=== PATIENT | female | born 1975 | race Caucasian/White ===

== ENCOUNTER → 2017-10-06 | Outpatient (CLI) | payer BC ==
--- NOTE | 2017-10-06 17:54 | US ---
EXAMINATION TYPE: US pelvic complete DATE OF EXAM: 10/06/2017 COMPARISON: NONE CLINICAL HISTORY: 41-year-old female R59.0 LYMPHADENOPATHY ATTN RT GROIN. With prior hysterectomy and left oophorectomy, h/o ovarian cysts, palpable right groin node . TECHNIQUE: Transabdominal scanning Date of LMP: 2011 FINDINGS: Uterus: Surgically absent Right Ovary: 4.1 x 4.9 x 3.9 cm with a 3.7 cm simple cyst within. Left Ovary: Surgically absent No evident adnexal abnormality or cul-de-sac free fluid. Palpable, tender area in right groin for 1 year, images of area of concern showed multiple normal a ppearing lymph nodes. Largest = 1.1cm. IMPRESSION: 1. Status post hysterectomy and left oophorectomy. 2. A 3.7 cm simple cyst in the right ovary. Findings probably represent a dominant follicle or functi onal cyst. If indicated, follow-up in 6-8 weeks can assess for resolution. 3. Tender, palpable area in the right groin shows a few prominent but nonenlarged inguinal lymph node s measuring up to 1.1 cm long axis.
== END | disposition home or self-care (01) ==
LOC: RADUSWWP 13:57
PROVIDERS: ATTEND Family Medicine
DX: N83.201 Unspecified ovarian cyst, right side (principal); M79.89 Other specified soft tissue disorders; Z90.710 Acquired absence of both cervix and uterus; Z90.721 Acquired absence of ovaries, unilateral
CPT/HCPCS: 76856

== ENCOUNTER 2018-02-24 03:39 | Emergency (ER) | payer BC, OTHER ==
[2018-02-24 03:44] VITALS: BP 130/80; PULSE 81; RESP 20; TEMP 98
--- NOTE | 2018-02-24 03:59 | ED ---
General Adult HPI - General Chief complaint: Extremity Injury, Upper Stated complaint: Hand injury-[facility] Time Seen by Provider: 02/24/18 03:40 Source: patient, family, RN notes reviewed Mode of arrival: ambulatory Limitations: no limitations - History of Present Illness Initial comments: This is a 42-year-old female comes into the right hand pain. Patient states at work she caught her hand between 2 pieces of metal and now the posterior aspect of her right hand hurts. Patient denies any wrist pain patient denies any finger pain. Patient states she thinks she just broke a blood vessel and that is irritating her hand. Patient denies any other injury at this time. Patient denies any loss of movement or sensation. - Related Data Home Medications Medication Instructions Recorded Confirmed No Known Home Medications [No 04/05/14 02/24/18 Known Home Medications] Allergies Allergy/AdvReac Type Severity Reaction Status Date / Time No Known Allergies Allergy Verified 02/24/18 03:44 Review of Systems ROS Statement: Those systems with pertinent positive or pertinent negative responses have been documented in the HPI. ROS Other: All systems not noted in ROS Statement are negative. Past Medical History Past Medical History: Asthma, Blood Disorder, GERD/Reflux, Thyroid Disorder Additional Past Medical History / Comment(s): THYROID NODULES.ANEMIA (resolved after periods ceased due to partial hysterectomy).DEAF RIGHT EAR.STRESS INCONTINENCE.NUMBNESS/TINGLING BOTH WRISTS. History of Any Multi-Drug Resistant Organisms: None Reported Past Surgical History: Hysterectomy, Tonsillectomy, Tubal Ligation Additional Past Surgical History / Comment(s): RIGHT EARDRUM SURGERY. Partial hysterectomy/left oopherectomy. Past Anesthesia/Blood Transfusion Reactions: No Reported Reaction Additional Past Anesthesia/Blood Transfusion Reaction / Comment(s): No hx of blood transfusions Past Psychological History: Depression Smoking Status: Current every day smoker Past Alcohol Use History: None Reported Past Drug Use History: None Reported General Exam - General Exam Comments Initial Comments: GENERAL Patient is well-developed and well-nourished. Patient is in mild distress. EYES Patient's pupils are equal and round. Extraocular motion is intact SKIN Unremarkable NEURO The patient is alert and oriented 3 PYSCH Patient has normal interpersonal interactions. MUSCULOSKELETAL Patient's right hand has some ecchymosis and tenderness to the posterior aspect there is no finger pain there is no finger swelling there is no wrist pain or lack of range of motion Limitations: no limitations Course Vital Signs 02/24/18 03:41 Temperature 98 F Pulse Rate 81 Respiratory 20 Rate Blood Pressure 130/80 O2 Sat by Pulse 98 Oximetry Medical Decision Making - Medical Decision Making X-ray of the hand shows no acute injury. Disposition Clinical Impression: Contusion, hand Disposition: HOME SELF-CARE Condition: Good Instructions: Contusion in Adults (ED), Hematoma (ED) Is patient prescribed a controlled substance at discharge?: No Referrals: Theresa Maxwell MD [Primary Care Provider] - 1-2 days Time of Disposition: 04:13
[2018-02-24] MEDS ORDERED: IBUPROFEN 600 MG TAB PO STA (04:13)
--- NOTE | 2018-02-24 04:19 | XR ---
EXAM: XR Right Hand Complete, 3 or More Views CLINICAL HISTORY: ITS.REASON XR Reason: Pain TECHNIQUE: Frontal, lateral and oblique views of the right hand. COMPARISON: No relevant prior studies available. FINDINGS: Bones/joints: Unremarkable. No acute fracture. No dislocation. Soft tissues: Unremarkable. No radiopaque foreign body. IMPRESSION: Normal right hand x-rays.
== END 2018-02-24 04:24 | disposition home or self-care (01) ==
LOC: EC 03:39
DX: S60.221A Contusion of right hand, initial encounter (principal); F17.200 Nicotine dependence, unspecified, uncomplicated; Z53.29 Procedure and treatment not carried out because of patient's decision for other reasons; W23.0XXA Caught, crushed, jammed, or pinched between moving objects, initial encounter; Y99.0 Civilian activity done for income or pay
CPT/HCPCS: 99283

== ENCOUNTER → 2018-03-04 | Outpatient (CLI) | payer OTHER ==
--- NOTE | 2018-03-04 11:35 | XR ---
EXAMINATION TYPE: XR hand complete RT DATE OF EXAM: 03/04/2018 CLINICAL HISTORY: Injury last week to the dorsum of the hand with bruising and pain. TECHNIQUE: Frontal, lateral and oblique images of the right hand are obtained. COMPARISON: None. FINDINGS: There is no acute fracture/dislocation evident in the right hand. The joint spaces in the right hand appear within normal limits. The overlying soft tissue appears unremarkable. IMPRESSION: There is no acute fracture or dislocation in the right hand.
== END | disposition home or self-care (01) ==
LOC: RADXRMAIN 11:17
PROVIDERS: ATTEND Emergency Medicine
DX: S67.21XD Crushing injury of right hand, subsequent encounter (principal)

== ENCOUNTER → 2018-03-17 | Outpatient (CLI) | payer BC ==
[2018-03-17 17:08] LABS: Basophils # (A) 0.1 k/uL (0-0.2); Basophils % (A) 1 %; Eosinophils # (A) 0.3 k/uL (0-0.7); Eosinophils % (A) 5 %; HCT 43.8 % (34.0-46.0); HGB 14.4 gm/dL (11.4-16.0); Lymphocytes # (A) 1.1 k/uL (1.0-4.8); Lymphocytes % (A) 19 %; MCHC 32.8 g/dL (31.0-37.0); MCV 88.5 fL (80.0-100.0); Mean Platelet Volume 8.3; Monocytes # (A) 0.4 k/uL (0-1.0); Monocytes % (A) 7 %; Neutrophils # (A) 3.8 k/uL (1.3-7.7); Neutrophils % (A) 66 %; Platelet Count 185 k/uL (150-450); RBC 4.95 m/uL (3.80-5.40); WBC 5.7 k/uL (3.8-10.6)
== END | disposition home or self-care (01) ==
LOC: LABPAT 16:23
PROVIDERS: ATTEND Obstetrics & Gynecology
DX: Z01.812 Encounter for preprocedural laboratory examination (principal)
CPT/HCPCS: 36415; 85025

== ENCOUNTER → 2018-03-24 | Outpatient (CLI) | payer BC | END | disposition home or self-care (01) | LOC: LABPAT 15:48 | PROVIDERS: ATTEND Obstetrics & Gynecology | DX: Z01.812 Encounter for preprocedural laboratory examination (principal) | CPT/HCPCS: 36415; 86850; 86900; 86901 ==

== ENCOUNTER 2018-03-26 05:58 | Day surgery (SDC) | payer BC ==
[2018-03-23 15:53] VITALS: BMI 25.4
[~2018-03-26 05:58] MED LIST: DEXAMETHASONE SOD PHOSPHATE 10 MG/ML 1 ML VIAL IV ONE; LACTATED RINGERS 1,000 ML IV SCH; LIDOCAINE 1% 20 ML VIAL (10MG/ML) FOR IV START INTRADERMA PRN; MORPHINE SULFATE 4 MG/ML SYRINGE IV PRN; ONDANSETRON 4 MG/2 ML VIAL IVP ONE
--- NOTE | 2018-03-26 06:24 | P.HPOB ---
History of Present Illness H&P Date: 03/26/18 Chief Complaint: Pelvic pain 42 year old presents for diagnostic laparoscopy with da dennis and possible cauterization of endometriosis, possible aspiration of ovarian cyst and possible right oopherectomy all for pelvic pain. She has a history of adenomyosis and endometriosis and has already undergone a hysterectomy. Review of Systems All systems: negative Constitutional: Denies chills, Denies fever Eyes: denies blurred vision, denies pain Ears, nose, mouth and throat: Denies headache, Denies sore throat Cardiovascular: Denies chest pain, Denies shortness of breath Respiratory: Denies cough Gastrointestinal: Denies abdominal pain, Denies diarrhea, Denies nausea, Denies vomiting Genitourinary: Denies dysuria, Denies hematuria Musculoskeletal: Denies myalgias Integumentary: Denies pruritus, Denies rash Neurological: Denies numbness, Denies weakness Psychiatric: Denies anxiety, Denies depression Endocrine: Denies fatigue, Denies weight change Past Medical History Past Medical History: Asthma, Blood Disorder, GERD/Reflux, Thyroid Disorder Additional Past Medical History / Comment(s): THYROID NODULES.ANEMIA (resolved after periods ceased due to hysterectomy).DEAF RIGHT EAR.STRESS INCONTINENCE.NUMBNESS/TINGLING BOTH WRISTS. History of Any Multi-Drug Resistant Organisms: None Reported Past Surgical History: Hysterectomy, Tonsillectomy, Tubal Ligation Additional Past Surgical History / Comment(s): RIGHT EARDRUM SURGERY. Partial hysterectomy/left oopherectomy. Past Anesthesia/Blood Transfusion Reactions: No Reported Reaction Additional Past Anesthesia/Blood Transfusion Reaction / Comment(s): No hx of blood transfusions Past Psychological History: Depression Past Alcohol Use History: None Reported Additional Past Alcohol Use History / Comment(s): smokes 1/4 pack/day x 20 years - Past Family History Mother Additional Family Medical History / Comment(s): Aneursym. Medications and Allergies Home Medications Medication Instructions Recorded Confirmed Type No Known Home Medications [No 04/05/14 03/23/18 History Known Home Medications] Allergies Allergy/AdvReac Type Severity Reaction Status Date / Time No Known Allergies Allergy Verified 03/23/18 15:42 Exam Osteopathic Statement: *. No significant issues noted on an osteopathic structural exam other than those noted in the History and Physical/Consult. HEart: RRR Lungs: CTAB ABdomen: soft, nontender extremeties: neg dave's Assessment and Plan (1) Pelvic pain Current Visit: Yes Status: Acute Code(s): R10.2 - PELVIC AND PERINEAL PAIN SNOMED Code(s): 08594913 Plan: 1. diagnostic laparoscopy with da vinici, possible cauterization of endometriosis, possible aspiration of right ovarian cyst, possible oopherectomy
[2018-03-26] MEDS ORDERED: SCOPOLAMINE 1.5MG/72HR PATCH TRANSDERM ONE (06:53)
[2018-03-26] MEDS ORDERED: BUPIVACAINE (PF) 0.25% 30 ML VIAL SQ ONE ×2 (07:19→08:59)
[2018-03-26] MEDS ORDERED: GLYCOPYRROLATE 0.2 MG/ML 2 ML VIAL ONE (07:58)
[2018-03-26] MEDS ORDERED: fentaNYL (PF) 50 MCG/ML 2 ML AMP ONE (07:58)
[2018-03-26] MEDS ORDERED: NEOSTIGMINE 1 MG/ML 10 ML VIAL ONE (07:58)
[2018-03-26] MEDS ORDERED: ROCURONIUM BROMIDE 10 MG/ML 10 ML VIAL IV ONE (07:58)
[2018-03-26] MEDS ORDERED: MIDAZOLAM 2 MG/2 ML VIAL ONE (07:58)
[2018-03-26] MEDS ORDERED: LIDOCAINE 1% INJ 10MG/ML (20 ML MDV) ONE (07:58)
[2018-03-26] MEDS ORDERED: PROPOFOL 10 MG/ML 20 ML VIAL IV ONE (07:58)
--- NOTE | 2018-03-26 09:04 | P.OP ---
Date of Procedure: 03/26/18 Preoperative Diagnosis: 1. pelvic pain Postoperative Diagnosis: 1. endometriosis 2. hepatomegaly 3. filmy pelvic adhesions Procedure(s) Performed: 1. diagnostic laparoscopy, cauterization of endometriosis and lysis of adhesions with da scotty Anesthesia: CARMELITA Surgeon: Vani Martinez Estimated Blood Loss (ml): 2 IV fluids (ml): 350 Urine output (ml): 75 Pathology: none sent Condition: stable Disposition: PACU Operative Findings: hepatomegaly. no ovarian cysts and both ovaries clearly visualized. filmy pelvic adhesions to bowel, normal appendix, hepatomegaly. Description of Procedure: Patient taken the operating room where general anesthesia was obtained without difficulty. She is prepped and draped in normal sterile fashion dorsal lithotomy position, legs placed in the Fred stirrups. A 5 mm supraumbilical incision was made the scalpel and a 5 mm optical trocar was placed under direct visualization. 10 cm to the right of this and 2 cm down a 5 mm incision was made and 8 mm da Scotty port was placed under direct visualization. Same measurements on the opposite side of the patient's abdomen, the 5 mm incision was made and 8 mm da Scotty port was placed under direct visualization. The 5 mm optical trocar was then replaced with the 8 mm da Scotty camera port. The robot was docked. The camera was introduced and then the monopolar curved scissor and [place] bipolar placed under direct visualization. I broke scrub and went to the physician console. On survey of the pelvis immediately observed was that the liver reaches all the way down to the right side of the pelvis. This is obviously evidence for hepatomegaly. Also visible is the appendix which appeared normal, there is some filmy adhesions of the cecum to the right pelvic sidewall. There are some filmy adhesions around the right ovary. There is no evidence of a right ovarian cyst. The left ovary is visualized and appears normal. There is some small area of endometriosis visualized in the posterior cul-de-sac and this area was cauterized with the monopolar curved scissors. The filmy adhesions are taken down with the monopolar curved scissors. All instruments were removed from the abdomen and the robot was undocked. The abdominal incisions were closed with 4-0 Vicryl in a subcuticular fashion. Patient tolerated the procedure well, sponge and instrument counts correct 2 and she was taken to recovery room in stable condition condition
[2018-03-26] MEDS: MEPERIDINE 50 MG/ML SYRINGE IVP ONE ×2 (09:18→09:31)
[2018-03-26 09:34] VITALS: TEMP 97.7
[2018-03-26] MEDS ORDERED: KETOROLAC 30 MG/ML 1 ML VIAL IVP ONE (09:36)
[2018-03-26] MEDS ORDERED: diphenhydrAMINE 50 MG/ML 1 ML VIAL IVP ONE (09:36)
[2018-03-26] MEDS ORDERED: IBUPROFEN 200 MG TAB PO ONE (10:39)
[2018-03-26 10:47] VITALS: BP 111/74; PULSE 75; RESP 18
== END 2018-03-26 11:11 | disposition home or self-care (01) ==
LOC: OR 05:58
PROVIDERS: ATTEND Obstetrics & Gynecology
DX: N80.0 Endometriosis of uterus (principal); N73.6 Female pelvic peritoneal adhesions (postinfective); R16.0 Hepatomegaly, not elsewhere classified; F17.210 Nicotine dependence, cigarettes, uncomplicated; K21.9 Gastro-esophageal reflux disease without esophagitis; E04.2 Nontoxic multinodular goiter
CPT/HCPCS: 58662; J2250; J1200; J1100; J2710; J2175; J2405; J2001; J3010; J1885; J2704; 36415; 86850; 86900; 86901

== ENCOUNTER → 2018-04-09 | Outpatient (CLI) | payer BC ==
--- NOTE | 2018-04-09 17:26 | CT ---
EXAMINATION TYPE: CT abdomen pelvis w con DATE OF EXAM: 04/09/2018 COMPARISON: NONE INDICATION: Hepatomegaly, RUQ pain and attention R groin DLP: 488.90 mGycm, Automated exposure control for dose reduction was used. CONTRAST: 100 ml mL of Isovue 300. Study performed with Oral Contrast TECHNIQUE: Axial images were obtained from above the diaphragm to the pubic rami in the axial plane a t 5 mm thick sections. Reconstructed images are reviewed on the computer in the coronal plane. FINDINGS: Limited CT sections are obtained the lung bases. The lung bases are clear. CT ABDOMEN: Liver: Normal Spleen: Normal Pancreas: Normal Adrenal glands: The adrenal glands are normal. Gallbladder: Normal Kidneys: No masses are evident. No hydronephrosis is present. No cysts are present. Delayed images were obtained through the kidneys, which remain unremarkable. Aorta: Normal Inferior vena cava: Normal. CT PELVIS: Loops of bowel within the abdomen and pelvis are normal. There are loops of bowel which are incom pletely distended or lack oral contrast limiting their evaluation. Appendix: Not clearly identified. No suspicious tubular structure or inflammatory changes evident. Urinary bladder: Normal. Genitourinary structures: Uterus and ovaries are not identified. Osseous structures: No suspicious lytic or sclerotic lesions. Lymph nodes: Multiple bilateral inguinal lymph nodes are present. Largest on the left inguinal region is a transverse dimension of 1.0 cm. No suspicious pelvic or abdominal adenopathy is evident. IMPRESSIONS: 1. Scattered small bilateral inguinal lymph nodes. 2. No suspicious abnormality to account for right upper quadrant pain
== END | disposition home or self-care (01) ==
LOC: RADCTMAIN 07:26
PROVIDERS: ATTEND Family Medicine
DX: R16.0 Hepatomegaly, not elsewhere classified (principal); R59.0 Localized enlarged lymph nodes; R10.10 Upper abdominal pain, unspecified
CPT/HCPCS: 74177; Q9967

== ENCOUNTER → 2018-05-21 | Outpatient (CLI) | payer BC ==
--- NOTE | 2018-05-21 09:44 | US ---
EXAMINATION TYPE: US abdomen complete DATE OF EXAM: 05/21/2018 COMPARISON: CT abdomen and pelvis April 09, 2018 CLINICAL HISTORY: R16.0 Hepatomegaly. EXAM MEASUREMENTS: Liver Length: 15.6 cm Gallbladder Wall: 0.2 cm CBD: 0.6 cm Spleen: 11.6 cm Right Kidney: 9.8 x 4.1 x 5.1 cm Left Kidney: 9.7 x 5.9 x 5.7 cm Pancreas: visualized portions wnl Liver: wnl Gallbladder: No stones seen Evidence for sonographic Johnson's sign: No CBD: wnl Spleen: wnl Right Kidney: No hydronephrosis or masses seen Left Kidney: No hydronephrosis or masses seen Upper IVC: wnl Abd Aorta: wnl The visualized liver is homogenous. The intrahepatic portion of the IVC and visualized abdominal aor ta are within normal limits. There is no evidence of cholelithiasis. Common bile duct is unremarkab le. The visualized portions of the pancreas are homogenous. The spleen is unremarkable. Kidneys ar e symmetric and free of hydronephrosis. No renal lesions are seen. IMPRESSION: Liver felt upper limits normal in size without worrisome mass or intrahepatic ductal dila tation. No suspicious acute or new findings identified.
== END | disposition home or self-care (01) ==
LOC: RADUSWWP 08:47
DX: R16.0 Hepatomegaly, not elsewhere classified (principal)
CPT/HCPCS: 76700

== ENCOUNTER → 2018-05-29 | Outpatient (CLI) | payer BC ==
[2018-05-29 17:17] LABS: Albumin 4.6 g/dL (3.5-5.0); Bilirubin, Delta 0.2 mg/dL (0.0-0.2); Bilirubin,Unconjugated 0.6 mg/dL (0.0-1.1); Total Bilirubin 0.8 mg/dL (0.2-1.3); Total Protein 6.9 g/dL (6.3-8.2)
== END ==
LOC: LABWHC1 16:28
DX: R16.0 Hepatomegaly, not elsewhere classified (principal)
CPT/HCPCS: 36415; 80076

== ENCOUNTER → 2018-08-31 | Outpatient (CLI) | payer BC ==
--- NOTE | 2018-08-31 18:24 | US ---
EXAMINATION TYPE: US abdomen complete DATE OF EXAM: 08/31/2018 COMPARISON: NONE CLINICAL HISTORY: RUQ Tenderness R10.11,Diarrhea R19.7. Pain and nausea. EXAM MEASUREMENTS: Liver Length: 16.1 cm Gallbladder Wall: 0.2 cm CBD: 0.5 cm Spleen: 10.8 cm Right Kidney: 10.0 x 4.0 x 4.9 cm Left Kidney: 9.2 x 5.3 x 4.5 cm Pancreas: wnl Liver: wnl Gallbladder: wnl Evidence for sonographic Johnson's sign: No CBD: wnl Spleen: wnl Right Kidney: wnl Left Kidney: wnl Upper IVC: wnl Abd Aorta: Distal area obscured by bowel gas. No ascites. Normal gallbladder. IMPRESSION: Negative complete abdominal sonogram.
== END | disposition home or self-care (01) ==
LOC: RADUSMAIN 16:59
PROVIDERS: ATTEND Family Medicine
DX: R10.11 Right upper quadrant pain (principal); R19.7 Diarrhea, unspecified; N28.9 Disorder of kidney and ureter, unspecified
CPT/HCPCS: 76700

== ENCOUNTER → 2018-10-27 | Outpatient (CLI) | payer BC ==
--- NOTE | 2018-10-28 08:24 | NM ---
EXAMINATION TYPE: NM hepatobiliary w EF DATE OF EXAM: 10/27/2018 COMPARISON: Abdominal ultrasound dated 08/31/2018 HISTORY: Right upper quadrant pain TECHNIQUE: After the intravenous administration of 5.36 mCi Tc 99m Mebrofenin hepatobiliary scintigra phy is performed. Immediate images post injection. FINDINGS: There is satisfactory initial accumulation of tracer by the liver. The gallbladder is visualized wit hin 24 minutes. The small bowel activity is noted within 16 minutes. At one hour 8 ounces of oral e nsure plus is given to mimic CCK and gallbladder ejection fraction is calculated at 90 %, abnormally elevated. Therefore there is no scintigraphic evidence of cystic or common bile duct obstruction to suggest acute cholecystitis or gallbladder dyskinesia. IMPRESSION: 1. No scintigraphic evidence of acute or chronic cholecystitis. 2. Biliary dyskinesia (hyperkinesia with ejection fraction of 90%).
== END ==
LOC: RADNMMAIN 14:55
PROVIDERS: ATTEND Surgery
DX: K82.8 Other specified diseases of gallbladder (principal)
CPT/HCPCS: 78226; A9537

== ENCOUNTER → 2018-12-16 | Day surgery (SDC) | payer BC ==
[2018-12-11 15:18] VITALS: BMI 25.0
[~2018-12-16] MED LIST changes: +BUPIVACAIN-EPI 0.25%-1:200,000 30 ML VIAL SQ ONE; +GLYCOPYRROLATE 0.2 MG/ML 2 ML VIAL ONE; +HEPARIN SODIUM,PORCINE 5,000 UNIT/ML 1 ML VIAL SQ ONE; +HYDROcodone/APAP 5-325MG 1 EACH TAB PO ONE; +HYDROcodone/APAP 5-325MG 1 EACH TAB PO PRN; +KETOROLAC 30 MG/ML 1 ML VIAL IVP ONE; +LACTATED RINGERS 1,000 ML IV ONE; +LIDOCAINE 1% INJ 10MG/ML (20 ML MDV) ONE; -MORPHINE SULFATE 4 MG/ML SYRINGE IV PRN; +NALOXONE 0.4 MG/ML 1 ML VIAL IV PRN; +NEOSTIGMINE 1 MG/ML 10 ML VIAL ONE; +PROPOFOL 10 MG/ML 20 ML VIAL IV ONE; +ROCURONIUM BROMIDE 10 MG/ML 10 ML VIAL IV ONE; +SCOPOLAMINE 1.5MG/72HR PATCH TRANSDERM ONE; +ceFAZolin IN SWFI 2 GM/20 ML SYRINGE IVP ONE; +fentaNYL (PF) 50 MCG/ML 2 ML AMP ONE
--- NOTE | 2018-12-16 07:58 | P.GSHP ---
History of Present Illness H&P Date: 12/16/18 Chief Complaint: Biliary dyskinesia Patient seen in the office in October. Patient has had complaints of intermittent right upper quadrant pain. Some nausea. Ultrasound shows no gallstones. Recent laparoscopy revealed some hepatomegaly. Patient had some transient liver enzyme elevations. She was seen by GI for this. A HIDA scan was performed which showed an elevated ejection fraction of 90%. Past Medical History Past Medical History: Asthma, Blood Disorder, GERD/Reflux, Hearing Disorder / Deafness Additional Past Medical History / Comment(s): ANEMIA (resolved after periods ceased due to hysterectomy). DEAF RIGHT EAR. STRESS INCONTINENCE. NUMBNESS/ TINGLING BOTH WRISTS. HX ENLARGED LIVER, ENZYMES NL NOW. C/O ONGOING ABD PAIN. History of Any Multi-Drug Resistant Organisms: None Reported Past Surgical History: Hysterectomy, Tonsillectomy, Tubal Ligation Additional Past Surgical History / Comment(s): RIGHT EARDRUM SURGERY. Partial hysterectomy. Past Anesthesia/Blood Transfusion Reactions: Motion Sickness Additional Past Anesthesia/Blood Transfusion Reaction / Comment(s): No hx of blood transfusions Smoking Status: Current every day smoker - Past Family History Mother Family Medical History: No Reported History Medications and Allergies Home Medications Medication Instructions Recorded Confirmed Type No Known Home Medications 12/11/18 12/11/18 History Allergies Allergy/AdvReac Type Severity Reaction Status Date / Time No Known Allergies Allergy Verified 12/11/18 14:57 Surgical - Exam Physical exam: General: Well-developed, well-nourished HEENT: Normocephalic, sclerae nonicteric Abdomen: Nontender, nondistended Extremities: No edema Neuro: Alert and oriented Assessment and Plan (1) Biliary dyskinesia Narrative/Plan: Options discussed with the patient in detail. Patient's intermittent attacks of pain with elevated liver enzyme elevation could be on the basis of microlithiasis not seen on recent ultrasound. Patient's elevated ejection fraction also could be contributing to her discomfort. The patient understands there is a real risk that the cholecystectomy will not alleviate her symptoms of right upper quadrant pain. Despite that she would like to proceed. Risks of bleeding, infection, bile leak, bile duct injury, retained common bile duct stone, trocar injury, conversion to an open procedure, hernia, anesthesia related complications were also reviewed. The patient understands and wishes to proceed. Current Visit: Yes Status: Acute Code(s): K82.8 - OTHER SPECIFIED DISEASES OF GALLBLADDER SNOMED Code(s): 225277671
[2018-12-16 08:02] VITALS: RESP 16
--- NOTE | 2018-12-16 09:32 | P.OP ---
Date of Procedure: 12/16/18 Procedure(s) Performed: PREOPERATIVE DIAGNOSIS: Biliary dyskinesia POSTOPERATIVE DIAGNOSIS: Same PROCEDURE: Laparoscopic cholecystectomy SURGEON: Sri EBL: Minimal see anesthesia record ANESTHESIA: Gen. COMPLICATIONS: None OPERATIVE PROCEDURE: The patient was brought and placed on the operating room table in the supine position. The patient was placed under general anesthesia at that time. The abdomen was prepped and draped in the usual sterile fashion. A small vertical infraumbilical incision was made. The fascia was grasped with the Butch forceps. The fascia was retracted anteriorly. The Veress needle was advanced into the peritoneal cavity. The saline drop test was normal. Insufflation took place up to 15 mmHg. A 5 mm optical trocar was advanced and the peritoneal cavity. 2 additional 5 mm trochars were placed in the right upper quadrant under direct visualization. A 12 mm trocar was advanced into the epigastric incision site. The patient had some adhesions to the supraumbilical view of scar site. These did not interfere with our surgical procedure however. The gallbladder was retracted superiorly and laterally. The peritoneum overlying the infundibulum was bluntly dissected. The patient's cystic duct was visualized. The junction between the cystic duct common and hepatic duct was identified. The cystic duct was then divided after placement of 3 12 mm clips on the patient's side and one on the specimen side. The cystic artery was identified and clipped as well. A small vessel was seen along the gallbladder fossa and clipped as well. The gallbladder was then removed from the liver bed using electrocautery. The gallbladder was then removed from the epigastric trocar site with an Endo Catch bag. The gallbladder fossa was irrigated with saline. There was no evidence of any bleeding or biliary drainage seen. The fascia at the 12 millimeter site was closed using a Franklin-Dave 0 Vicryl stitch. The trochars were then removed. The skin at all 4 sites was closed using a 4-0 Monocryl stitch. Skin glue was utilized on the incision sites. At the end of this procedure the sponge and needle counts were correct. DISPOSITION: Stable to the recovery room
[2018-12-16 09:38] VITALS: TEMP 97
[2018-12-16] MEDS: HYDROmorphone 0.5 MG/0.5 ML SYRINGE IVP PRN ×4 (09:46→10:27)
[2018-12-16 11:23] VITALS: BP 109/66; PULSE 75
== END ==
LOC: OR 07:17
PROVIDERS: ATTEND Surgery
DX: K81.1 Chronic cholecystitis (principal); K66.0 Peritoneal adhesions (postprocedural) (postinfection); J45.909 Unspecified asthma, uncomplicated; K21.9 Gastro-esophageal reflux disease without esophagitis; H91.91 Unspecified hearing loss, right ear; Z90.710 Acquired absence of both cervix and uterus; F17.200 Nicotine dependence, unspecified, uncomplicated
CPT/HCPCS: 47562; 88304; J1644; J1100; J2710; J2405; J2001; J3010; J1885; J2704; J1170; J0690

== ENCOUNTER 2019-10-27 01:34 | Observation (INO) | payer BC ==
[2019-10-27] MEDS ORDERED: MAG HYDROX/AL HYDROX/SIMETH 30 ML, HYOSCYAMINE ELIXIR 10 ML, LIDOCAINE VISCOUS 2% 10 ML PO STA ×3 (02:01)
[2019-10-27] MEDS ORDERED: SODIUM CHLORIDE 0.9% 1,000 ML IV STA (02:01)
[2019-10-27] MEDS ORDERED: FAMOTIDINE 20 MG/2 ML VIAL IV STA (02:01)
--- NOTE | 2019-10-27 02:07 | ED ---
General Adult HPI - General Source: patient, RN notes reviewed Mode of arrival: wheelchair Limitations: no limitations <Bobby Au - Last Filed: 10/27/19 02:04> <Quintin Bauman - Last Filed: 10/27/19 04:54> - General Chief complaint: Abdominal Pain Stated complaint: Abd Pain Time Seen by Provider: 10/27/19 01:50 - History of Present Illness Initial comments: 44-year-old female with a past medical history of asthma, GERD, anemia presents to the emergency department for a chief complaint of upper abdominal pain. States this started around 11:30 this evening or about 3 hours prior to arrival. Patient states it is in the epigastric area and radiates to the right upper abdomen. Patient states she did have her gallbladder removed in December of this year. Patient discussed the pain as a sharp twisting pain. Denies nausea vomiting diarrhea. Denies any chest pain or shortness of breath. Denies any associated back pain. Denies history of hypertension. Patient has no other complaints at this time including shortness of breath, chest pain, nausea or vomiting, headache, or visual changes. (Bobby Au) - Related Data Previous Rx's Medication Instructions Recorded Hydrocodone/Acetaminophen [[place] 1 tab PO Q6HR PRN 3 Days #10 tab 12/16/18 5-325] Allergies Allergy/AdvReac Type Severity Reaction Status Date / Time No Known Allergies Allergy Verified 12/16/18 07:56 Review of Systems ROS Other: All systems not noted in ROS Statement are negative. <Bobby Au - Last Filed: 10/27/19 02:04> ROS Other: All systems not noted in ROS Statement are negative. <Quintin Bauman - Last Filed: 10/27/19 04:54> ROS Statement: Those systems with pertinent positive or pertinent negative responses have been documented in the HPI. Past Medical History Past Medical History: Asthma, Blood Disorder, GERD/Reflux, Hearing Disorder / Deafness Additional Past Medical History / Comment(s): ANEMIA . DEAF RIGHT EAR. STRESS INCONTINENCE. NUMBNESS/TINGLING BOTH WRISTS. HX ENLARGED LIVER, ENZYMES NL NOW. C/O ONGOING ABD PAIN. History of Any Multi-Drug Resistant Organisms: None Reported Past Surgical History: Hysterectomy, Tonsillectomy, Tubal Ligation Additional Past Surgical History / Comment(s): RIGHT EARDRUM SURGERY. Partial hysterectomy. Past Anesthesia/Blood Transfusion Reactions: Motion Sickness Additional Past Anesthesia/Blood Transfusion Reaction / Comment(s): No hx of blood transfusions Past Psychological History: Depression Smoking Status: Current every day smoker - Past Family History Mother Family Medical History: No Reported History <Bobby Au P - Last Filed: 10/27/19 02:04> General Exam Limitations: no limitations General appearance: alert, in no apparent distress Head exam: Present: atraumatic, normocephalic, normal inspection Eye exam: Present: normal appearance, PERRL, EOMI. Absent: scleral icterus, conjunctival injection, periorbital swelling ENT exam: Present: normal exam, mucous membranes moist Neck exam: Present: normal inspection, full ROM. Absent: tenderness, meningismus, lymphadenopathy Respiratory exam: Present: normal lung sounds bilaterally. Absent: respiratory distress, wheezes, rales, rhonchi, stridor Cardiovascular Exam: Present: regular rate, normal rhythm, normal heart sounds. Absent: systolic murmur, diastolic murmur, rubs, gallop, clicks GI/Abdominal exam: Present: soft, tenderness (epigastric tenderness without significant guarding. no lower abdominal tenderness), normal bowel sounds. Absent: distended, guarding, rebound, rigid Neurological exam: Present: alert Psychiatric exam: Present: normal affect, normal mood <Bobby Au P - Last Filed: 10/27/19 02:04> Course Vital Signs 10/27/19 01:44 Temperature 97.9 F Pulse Rate 100 Respiratory 18 Rate Blood Pressure 123/82 O2 Sat by Pulse 98 Oximetry Medical Decision Making - Lab Data Result diagrams: 10/27/19 02:20 10/27/19 02:20 <Quintin Bauman N - Last Filed: 10/27/19 04:54> - Medical Decision Making 44-year-old female with epigastric and right upper quadrant abdominal pain. Previous surgical history of cholecystectomy. Patient has mild leukocytosis 11.7, hemoglobin 16.3 likely secondary to hemoconcentration. She has bilirubin of 2.0, mild transaminitis. She is 2+ ketones in the urine consistent with some dehydration. CT is performed which shows a 10 mm common bile duct, no acute intra-abdominal process, normal intrahepatic biliary ducts. She remains symptomatic despite several rounds of antiemetics and pain medication the emergency department. She will be admitted with GI on consult. Case is discussed with the admitting physician. (Quintin Bauman) - Lab Data Lab Results 10/27/19 10/27/19 10/27/19 Range/Units 02:20 02:20 02:20 WBC 11.7 H (3.8-10.6) k/uL RBC 5.45 H (3.80-5.40) m/uL Hgb 16.3 H (11.4-16.0) gm/dL Hct 49.0 H (34.0-46.0) % MCV 89.9 (80.0-100.0) fL MCH 30.0 (25.0-35.0) pg MCHC 33.3 (31.0-37.0) g/dL RDW 12.1 (11.5-15.5) % Plt Count 160 (150-450) k/uL Neutrophils % 91 % Lymphocytes % 2 % Monocytes % 4 % Eosinophils % 2 % Basophils % 1 % Neutrophils # 10.6 H (1.3-7.7) k/uL Lymphocytes # 0.3 L (1.0-4.8) k/uL Monocytes # 0.4 (0-1.0) k/uL Eosinophils # 0.2 (0-0.7) k/uL Basophils # 0.1 (0-0.2) k/uL Sodium 138 (137-145) mmol/L Potassium 4.0 (3.5-5.1) mmol/L Chloride 105 (98-107) mmol/L Carbon Dioxide 25 (22-30) mmol/L Anion Gap 8 mmol/L BUN 14 (7-17) mg/dL Creatinine 0.76 (0.52-1.04) mg/dL Est GFR (CKD-EPI)AfAm >90 (>60 ml/min/1.73 sqM) Est GFR (CKD-EPI)NonAf >90 (>60 ml/min/1.73 sqM) Glucose 115 H (74-99) mg/dL Calcium 9.5 (8.4-10.2) mg/dL Total Bilirubin 2.0 H (0.2-1.3) mg/dL AST 225 H (14-36) U/L ALT 76 H (4-34) U/L Alkaline Phosphatase 73 (38-126) U/L Total Protein 7.6 (6.3-8.2) g/dL Albumin 4.7 (3.5-5.0) g/dL Amylase 68 (30-110) U/L Lipase 222 (23-300) U/L Urine Color Urine Appearance (Clear) Urine pH (5.0-8.0) Ur Specific Stark (1.001-1.035) Urine Protein (Negative) Urine Glucose (UA) (Negative) Urine Ketones (Negative) Urine Blood (Negative) Urine Nitrite (Negative) Urine Bilirubin (Negative) Urine Urobilinogen (<2.0) mg/dL Ur Leukocyte Esterase (Negative) Urine HCG, Qual Not Detected (Not Detectd) 10/27/19 Range/Units 02:20 WBC (3.8-10.6) k/uL RBC (3.80-5.40) m/uL Hgb (11.4-16.0) gm/dL Hct (34.0-46.0) % MCV (80.0-100.0) fL MCH (25.0-35.0) pg MCHC (31.0-37.0) g/dL RDW (11.5-15.5) % Plt Count (150-450) k/uL Neutrophils % % Lymphocytes % % Monocytes % % Eosinophils % % Basophils % % Neutrophils # (1.3-7.7) k/uL Lymphocytes # (1.0-4.8) k/uL Monocytes # (0-1.0) k/uL Eosinophils # (0-0.7) k/uL Basophils # (0-0.2) k/uL Sodium (137-145) mmol/L Potassium (3.5-5.1) mmol/L Chloride (98-107) mmol/L Carbon Dioxide (22-30) mmol/L Anion Gap mmol/L BUN (7-17) mg/dL Creatinine (0.52-1.04) mg/dL Est GFR (CKD-EPI)AfAm (>60 ml/min/1.73 sqM) Est GFR (CKD-EPI)NonAf (>60 ml/min/1.73 sqM) Glucose (74-99) mg/dL Calcium (8.4-10.2) mg/dL Total Bilirubin (0.2-1.3) mg/dL AST (14-36) U/L ALT (4-34) U/L Alkaline Phosphatase (38-126) U/L Total Protein (6.3-8.2) g/dL Albumin (3.5-5.0) g/dL Amylase (30-110) U/L Lipase (23-300) U/L Urine Color Yellow Urine Appearance Clear (Clear) Urine pH 6.0 (5.0-8.0) Ur Specific Stark 1.022 (1.001-1.035) Urine Protein Trace H (Negative) Urine Glucose (UA) Negative (Negative) Urine Ketones 2+ H (Negative) Urine Blood Negative (Negative) Urine Nitrite Negative (Negative) Urine Bilirubin Negative (Negative) Urine Urobilinogen 4.0 (<2.0) mg/dL Ur Leukocyte Esterase Negative (Negative) Urine HCG, Qual (Not Detectd) Disposition <Bobby Au P - Last Filed: 10/27/19 02:04> Is patient prescribed a controlled substance at d/c from ED?: No Decision to Admit Reason: Admit from EC Decision Date: 10/27/19 Decision Time: 04:54 <Quintin Bauman - Last Filed: 10/27/19 04:54> Clinical Impression: Abdominal pain Disposition: ADMITTED IP TO THIS HOSP Condition: Stable Referrals: Theresa Maxwell MD [Primary Care Provider] - 1-2 days
[2019-10-27 02:29] LABS: Appearance,Urine Clear (Clear); Basophils # (A) 0.1 k/uL (0-0.2); Basophils % (A) 1 %; Bilirubin,Urine Negative (Negative); Blood,Urine Negative (Negative); Color,Urine Yellow; Eosinophils # (A) 0.2 k/uL (0-0.7); Eosinophils % (A) 2 %; Glucose,Urine (UA) Negative (Negative); HGB 16.3 gm/dL (11.4-16.0); Ketones,Urine 2+ (Negative); Leukocyte Esterase,Urine Negative (Negative); Lymphocytes # (A) 0.3 k/uL (1.0-4.8); Lymphocytes % (A) 2 %; MCHC 33.3 g/dL (31.0-37.0); MCV 89.9 fL (80.0-100.0); Monocytes # (A) 0.4 k/uL (0-1.0); Monocytes % (A) 4 %; Neutrophils # (A) 10.6 k/uL (1.3-7.7); Neutrophils % (A) 91 %; Nitrite,Urine Negative (Negative); Platelet Count 160 k/uL (150-450); Protein,Urine Trace (Negative); RBC 5.45 m/uL (3.80-5.40); RDW 12.1 % (11.5-15.5); Specific Gravity,Urine 1.022 (1.001-1.035); WBC 11.7 k/uL (3.8-10.6)
[2019-10-27 02:38] LABS: ALT 76 U/L (4-34); AST 225 U/L (14-36); African American GFR (CKD) >90 (>60 ml/min/1.73 sqM); Albumin 4.7 g/dL (3.5-5.0); Alkaline Phosphatase 73 U/L (38-126); Amylase 68 U/L (30-110); Anion Gap 8 mmol/L; Blood Urea Nitrogen 14 mg/dL (7-17); Calcium 9.5 mg/dL (8.4-10.2); Carbon Dioxide 25 mmol/L (22-30); Chloride 105 mmol/L (98-107); Glucose 115 mg/dL (74-99); Non-African American GFR(CKD) >90 (>60 ml/min/1.73 sqM); Sodium 138 mmol/L (137-145); Total Protein 7.6 g/dL (6.3-8.2)
--- NOTE | 2019-10-27 02:46 | XR ---
EXAMINATION TYPE: XR abdomen 2V DATE OF EXAM: 10/27/2019 COMPARISON: 08/27/2012 HISTORY: Abdominal pain TECHNIQUE: 3 views FINDINGS: Supine and upright views were obtained and show no sign of intestinal obstruction or pneumo peritoneum. Fecal pattern is normal. Lung bases are clear. There are clips from cholecystectomy. Ther e is no evidence of a mass. There is phleboliths in the pelvis on the right side. Bony structures are intact. IMPRESSION: Nonacute abdomen. No change.
[2019-10-27] MEDS ORDERED: MORPHINE SULFATE 4 MG/ML SYRINGE IVP STA (03:29)
[2019-10-27] MEDS ORDERED: HYDROmorphone 0.5 MG/0.5 ML SYRINGE IVP STA (04:20)
--- NOTE | 2019-10-27 04:33 | CT ---
EXAMINATION TYPE: CT abdomen pelvis w con DATE OF EXAM: 10/27/2019 COMPARISON: 04/09/2018 HISTORY: Patient presents with RUQ pain. CT DLP: 686 mGycm Automated exposure control for dose reduction was used. CONTRAST: Performed with IV Contrast, patient injected with 100mL mL of Isovue 300. Lung bases are clear. There is no pleural effusion. Heart size is normal. Liver and spleen appear normal. Intrahepatic bile ducts are not dilated. The common bile duct measure s 10 mm. There are clips from cholecystectomy. Stomach is intact. There is no pancreatic mass. There is no adrenal mass. Kidneys show satisfactory contrast opacification. There is no hydronephrosi s. Bladder distends smoothly. There is no inguinal hernia. There is hysterectomy. Lumbar vertebra hav e normal spacing and alignment. There is no compression fracture. Bony pelvis is intact. There is no mesenteric edema. There is no ascites or free air. There is no sign of a bowel obstructio n. There is 5 mm calcification in the pelvis on the right side there is probably a phlebolith. Unchan ged. IMPRESSION: No sign of acute abdomen and pelvis. No adverse change compared to old exam. There is cholecystectomy since last exam.
[2019-10-27] MEDS ORDERED: ONDANSETRON 4 MG/2 ML VIAL IVP PRN (04:50)
[2019-10-27] MEDS ORDERED: NALOXONE 0.4 MG/ML 1 ML VIAL IV PRN (04:50)
[2019-10-27] MEDS ORDERED: HYDROmorphone 1 MG/ML 1 ML SYRINGE IVP PRN (04:50)
[2019-10-27] MEDS: SODIUM CHLORIDE 0.9% 1,000 ML IV SCH ×2 (05:26→17:17)
[2019-10-27] MEDS: HYDROmorphone 0.5 MG/0.5 ML SYRINGE IVP PRN ×4 (06:24→21:35)
[2019-10-27] MEDS ORDERED: PANTOPRAZOLE 40 MG/10 ML VIAL IV SCH (09:00)
--- NOTE | 2019-10-27 10:15 | P.HPIM ---
History of Present Illness H&P Date: 10/27/19 Chief Complaint: epigastric pain this is a 44-year-old female patient of Dr. Maxwell. Patient presented to the ER with complaints of epigastric pain that has been intermittently occurring over the past 2 weeks.atient reports that the pain increased prompting her to come to ER. Patient reports that it radiates to right upper quadrant. Patient reports that she had a gallbladder removed in December of this year. Patient does have a past medical history of asthma, GERD and anemia. Patient also reports that she was getting worked up by GI services outpatient due to elevated liver enzymes Patient denies any change in diet. Patient does report she drinks a glass of wine a night. Patient denies any nausea vomiting or diarrhea. Patient reports normal bowel movements.abdominal x-ray completed showing nonacute abdomen. No change. CT of abdomen and pelvis completed showing no sign of an acute abdomen and pelvis no adverse change compared to old exam there is a cho lecystectom since last exam. EKG showing normal sinus rhythm and normal EKG. blood blood cells slightly elevated at 11.7. Total bili 2.0 AST 225 ALT 76. amylase and lipase within normal limits. At this timepatient is resting comfortably in bed. Patient was given Zofran for nausea associatith the medicatpatient repoas improved h pain medication. Patient denies any urinary burning or frequency. Patient denies any fevers at home. Review of Systems please refer to HPI otherwise unremarkable Past Medical History Past Medical History: Asthma, Blood Disorder, GERD/Reflux, Hearing Disorder / Deafness Additional Past Medical History / Comment(s): ANEMIA . DEAF RIGHT EAR. STRESS INCONTINENCE. NUMBNESS/TINGLING BOTH WRISTS. HX ENLARGED LIVER, ENZYMES NL NOW. C/O ONGOING ABD PAIN. History of Any Multi-Drug Resistant Organisms: None Reported Past Surgical History: Cholecystectomy, Hysterectomy, Tonsillectomy, Tubal Ligation Additional Past Surgical History / Comment(s): RIGHT EARDRUM SURGERY. Partial hysterectomy. Past Anesthesia/Blood Transfusion Reactions: Motion Sickness Additional Past Anesthesia/Blood Transfusion Reaction / Comment(s): No hx of blood transfusions Past Psychological History: Depression Additional Psychological History / Comment(s): NOT CURRENT Smoking Status: Current every day smoker Past Alcohol Use History: Occasional Additional Past Alcohol Use History / Comment(s): Smoked 1/2 PPD IN PAST, 2 PACKS PER WK NOW, SINCE 1998. Past Drug Use History: None Reported - Past Family History Mother Family Medical History: No Reported History Medications and Allergies Home Medications Medication Instructions Recorded Confirmed Type No Known Home Medications 10/27/19 10/27/19 History Allergies Allergy/AdvReac Type Severity Reaction Status Date / Time No Known Allergies Allergy Verified 10/27/19 07:48 Physical Exam Vitals: Vital Signs Temp Pulse Resp BP Pulse Ox 10/27/19 06:27 97 18 102/65 96 10/27/19 01:44 97.9 F 100 18 123/82 98 Intake and Output 10/26/19 10/27/19 10/27/19 22:59 06:59 14:59 Other: Weight 62.142 kg 62.142 kg Head normocephalic Neck supple Lungs clear to auscultation bilaterally no wheezing or crackles Heart regular rate and rhythm S1-S2, no rub or gallop Abdomenright upper quadrant tenderness to palpation in midepigastric tenderness to palpation Extremities no edema Neuro alert and orientated to 3 Results CBC & Chem 7: 10/27/19 02:20 10/27/19 02:20 Labs: Abnormal Lab Results - Last 24 Hours (Table) 10/27/19 10/27/19 10/27/19 Range/Units 02:20 02:20 02:20 WBC 11.7 H (3.8-10.6) k/uL RBC 5.45 H (3.80-5.40) m/uL Hgb 16.3 H (11.4-16.0) gm/dL Hct 49.0 H (34.0-46.0) % Neutrophils # 10.6 H (1.3-7.7) k/uL Lymphocytes # 0.3 L (1.0-4.8) k/uL Glucose 115 H (74-99) mg/dL Total Bilirubin 2.0 H (0.2-1.3) mg/dL AST 225 H (14-36) U/L ALT 76 H (4-34) U/L Urine Protein Trace H (Negative) Urine Ketones 2+ H (Negative) Thrombosis Risk Factor Assmnt - Choose All That Apply Each Factor Represents 1 point: Age 41-60 years Thrombosis Risk Factor Assessment Total Risk Factor Score: 1 Thrombosis Risk Factor Assessment Level: Low Risk Assessment and Plan Assessment: 1. Right upper quadrant and epigastric abdominal pain.abdominal x-ray completed showing nonacute abdomen. No change.CT of abdomen and pelvis completed showing no sign of acute abdomen and pelvis. No adverse change compared to old exam. There is a cholecystectomy last exam.amylase and lipase within normal limits. patient currently maintained on clear liquid diet. GI service is consulted 2. Elevated liver enzymes.total bili 2.0. AST 225, aLT 76 and alkaline phosphatase 73. Patient does reports she's been previously worked up outpatient with GI services for elevated liver enzymes. At this time GI services have been consulted 3. History of cholecystectomy in December 2018 4. history of GERD 5. History of deafness in right ear 6. History of asthma no exacerbation at this time 7. Nicotine use. Patient educated greater than 3 minutes on smoking cessation. declined nicotine patch at this time DVT prophylaxis heparin. GI prophylaxis Protonix Time with Patient: Greater than 30 (Greater than 60% of the total time spent in counseling and coordination of care. I performed an examination of the patient and discussed their management with the Nurse Practitioner. I have reviewed the Nurse Practitioner's notes and agree with the documented findings and plan of care)
--- NOTE | 2019-10-27 13:42 | US ---
EXAMINATION TYPE: US abdomen complete DATE OF EXAM: 10/27/2019 COMPARISON: NONE CLINICAL HISTORY: abdominal pain. epigastric pain for 2 weeks. cholecystectomy EXAM MEASUREMENTS: Liver Length: 17.0 cm Gallbladder Wall: Surgically absent CBD: 1.1 cm Spleen: 13.4 cm Right Kidney: 10.9 x 3.8 x 5.3 cm Left Kidney: 9.9 x 5.6 x 4.7 cm Pancreas: visualized portions appear wnl Liver: wnl Gallbladder: Surgically absent Evidence for sonographic Johnson's sign: no CBD: dilated 1.1 cm. Normal less than 1.0 cm in a postcholecystectomy patient. Spleen: slightly enlarged Right Kidney: no evidence of hydronephrosis Left Kidney: no evidence of hydronephrosis Upper IVC: wnl Abd Aorta: visualized portions appear wnl IMPRESSION: 1. Mild Prominence of the common bile duct is dilated at 1.1 cm. Normal less than 1.0 cm.
[2019-10-27] MEDS: METOCLOPRAMIDE 5 MG/ML 2 ML VIAL IVP SCH ×3 (13:53→23:27)
[2019-10-27] MEDS: ACETAMINOPHEN TAB 325 MG TAB PO PRN (21:25)
[2019-10-27] MEDS: PANTOPRAZOLE 40 MG/10 ML VIAL IV SCH (21:28)
[2019-10-27] MEDS: HEPARIN SODIUM,PORCINE 5,000 UNIT/ML 1 ML VIAL SQ SCH (21:33)
[2019-10-28] MEDS: HYDROmorphone 0.5 MG/0.5 ML SYRINGE IVP PRN ×2 (04:42→19:54)
[2019-10-28] MEDS: METOCLOPRAMIDE 5 MG/ML 2 ML VIAL IVP SCH ×4 (04:45→23:39)
[2019-10-28 06:33] LABS: ALT 388 U/L (4-34); AST 395 U/L (14-36); African American GFR (CKD) >90 (>60 ml/min/1.73 sqM); Albumin 3.2 g/dL (3.5-5.0); Alkaline Phosphatase 117 U/L (38-126); Anion Gap 4 mmol/L; Blood Urea Nitrogen 5 mg/dL (7-17); Carbon Dioxide 25 mmol/L (22-30); Chloride 109 mmol/L (98-107); Glucose 92 mg/dL (74-99); Non-African American GFR(CKD) >90 (>60 ml/min/1.73 sqM); Potassium 3.7 mmol/L (3.5-5.1); Sodium 138 mmol/L (137-145); Total Bilirubin 1.2 mg/dL (0.2-1.3); Total Protein 5.8 g/dL (6.3-8.2)
[2019-10-28] MEDS: HEPARIN SODIUM,PORCINE 5,000 UNIT/ML 1 ML VIAL SQ SCH ×2 (06:43→19:59)
[2019-10-28] MEDS: PANTOPRAZOLE 40 MG/10 ML VIAL IV SCH ×2 (07:10→19:59)
[2019-10-28] MEDS: SODIUM CHLORIDE 0.9% 1,000 ML IV SCH ×2 (07:11→19:54)
--- NOTE | 2019-10-28 08:37 | P.CONS ---
History of Present Illness - Reason for Consult Consult date: 10/27/19 abdominal pain, elevated liver enzymes Requesting physician: Mary Thompson - Chief Complaint Abdominal pain - History of Present Illness 44-year-old female with a medical history significant for asthma, GERD, anemia and elevated liver enzymes as well as prior cholecystectomy presented to the hospital with complaints of abdominal pain. The patient reports severe pain in the epigastric region of her abdomen. She describes the pain as sharp and constant without radiation. This started roughly one day prior to presentation. She denied any associated vomiting but did report some. On presentation to the hospital she did have a computed tomography scan of the abdomen with no acute findings and consistent with her prior cholecystectomy. Subsequent initially she underwent a ultrasound of the abdomen with findings of a 1.1 cm common bile duct as well as slight enlargement of the spleen. Laboratory evaluation was significant for WBC 11.7, hemoglobin 16.3, platelet count 160,000, total bilirubin 2.0, alkaline phosphatase 73, AST 225 and ALTs. Previously she had undergone evaluation for elevated liver enzymes and subsequently underwent a cholecystectomy and has not followed up since that time. She does report drinking approximately one glass of wine nightly but denies any history of intrinsic liver disease, excessive alcohol use, or family history of liver disease. Review of Systems REVIEW OF SYSTEMS: CONSTITUTIONAL: Denies any fevers, chills, weight change or fatigue. CARDIOVASCULAR: Denies any chest pain, palpitations high or low blood pressures RESPIRATORY: Denies any shortness of breath, hemoptysis or cough. GENITOURINARY: No dysuria or hematuria. MUSCULOSKELETAL: No weakness reported. SKIN: Denies any new rashes or lesions, jaundice or pallor. PSYCHIATRIC: Denies any depression or anxiety. NEUROLOGY: Denies headache, denies any new focal deficits. EARS/NOSE/THROAT: No recent hearing change, congestion, nasal discharge or sore throat. EYES: No pain in eyes, discharge or change in vision. GASTROINTESTINAL: As per HPI. Past Medical History Past Medical History: Asthma, Blood Disorder, GERD/Reflux, Hearing Disorder / Deafness Additional Past Medical History / Comment(s): ANEMIA . DEAF RIGHT EAR. STRESS INCONTINENCE. NUMBNESS/TINGLING BOTH WRISTS. HX ENLARGED LIVER, ENZYMES NL NOW. C/O ONGOING ABD PAIN. History of Any Multi-Drug Resistant Organisms: None Reported Past Surgical History: Cholecystectomy, Hysterectomy, Tonsillectomy, Tubal Ligation Additional Past Surgical History / Comment(s): RIGHT EARDRUM SURGERY. Partial hysterectomy. Past Anesthesia/Blood Transfusion Reactions: Motion Sickness Additional Past Anesthesia/Blood Transfusion Reaction / Comm: No hx of blood transfusions Past Psychological History: Depression Additional Psychological History / Comment(s): NOT CURRENT Smoking Status: Current every day smoker Past Alcohol Use History: Occasional Additional Past Alcohol Use History / Comment(s): Smoked 1/2 PPD IN PAST, 2 P ACKS PER WK NOW, SINCE 1998. Past Drug Use History: None Reported - Past Family History Mother Family Medical History: No Reported History Medications and Allergies Home Medications Medication Instructions Recorded Confirmed Type No Known Home Medications 10/27/19 10/27/19 History Allergies Allergy/AdvReac Type Severity Reaction Status Date / Time No Known Allergies Allergy Verified 10/27/19 07:48 Physical Exam Vitals: Vital Signs Temp Pulse Resp BP Pulse Ox 10/27/19 06:27 97 18 102/65 96 10/27/19 01:44 97.9 F 100 18 123/82 98 Intake and Output 10/26/19 10/27/19 10/27/19 22:59 06:59 14:59 Other: Weight 62.142 kg 62.142 kg On physical examination, patient appears comfortable in no apparent distress. HEAD: Normocephalic, atraumatic. EYES: No scleral icterus. No conjunctival injection. MOUTH: No lesions, tongue midline. NECK: Trachea midline, no gross abnormalities. CHEST: Clear to auscultation with no wheezing or rhonchi appreciated. HEART: Regular rate and rhythm. ABDOMEN: Soft, mildly tender to palpation. Bowel sounds are positive. No organomegaly. No guarding or rigidity. EXTREMITIES: No pedal edema. SKIN: No rashes, no jaundice. NEUROLOGIC: Alert and oriented x3. No focal deficits. Results CBC & Chem 7: 10/27/19 02:20 10/28/19 05:55 Labs: Abnormal Lab Results - Last 24 Hours (Table) 10/27/19 10/27/19 10/27/19 Range/Units 02:20 02:20 02:20 WBC 11.7 H (3.8-10.6) k/uL RBC 5.45 H (3.80-5.40) m/uL Hgb 16.3 H (11.4-16.0) gm/dL Hct 49.0 H (34.0-46.0) % Neutrophils # 10.6 H (1.3-7.7) k/uL Lymphocytes # 0.3 L (1.0-4.8) k/uL Glucose 115 H (74-99) mg/dL Total Bilirubin 2.0 H (0.2-1.3) mg/dL AST 225 H (14-36) U/L ALT 76 H (4-34) U/L Urine Protein Trace H (Negative) Urine Ketones 2+ H (Negative) US - abdomen: report reviewed (ultrasound abdomen with findings of slight splenomegaly and CBD measuring 1.1 cm) Assessment and Plan (1) Elevated liver enzymes Narrative/Plan: 44-year-old female presenting to the hospital with complaints of abdominal pain. Previously the patient had undergone cholecystectomy for biliary dyskinesia. On current presentation she reports severe epigastric abdominal pain without radiation. She was found to have associated elevation in liver enzymes with total bilirubin 2.0, alkaline phosphatase 73, AST 225 and ALT 76. Nausea associated with episode without associated vomiting. ultrasound of the abdomen significant for slight splenomegaly and a common bile duct of 1.1 cm. Previously she had been evaluated for elevated liver enzymes but is not followed up after cholecystectomy. She reports 1 glass of alcohol consumption nightly. Denies any family history or personal history of intrinsic liver disease. Unknown elevation in liver enzymes, we will order MRI/MRCP abdomen to rule out biliary pathology, as well as full serology to rule out intrinsic liver disease. Current Visit: Yes Status: Acute Code(s): R74.8 - ABNORMAL LEVELS OF OTHER SERUM ENZYMES SNOMED Code(s): 731072014 (2) Abdominal pain Current Visit: Yes Status: Acute Code(s): R10.9 - UNSPECIFIED ABDOMINAL PAIN SNOMED Code(s): 81593766 (3) Biliary dyskinesia Current Visit: No Status: Acute Code(s): K82.8 - OTHER SPECIFIED DISEASES OF GALLBLADDER SNOMED Code(s): 258721275 Plan: supportive care Okay for diet as tolerated Continue to monitor liver enzymes Full liver serologies ordered MRCP of the abdomen ordered and pending Continue fluid hydration, pain management Thank you for allowing us to participate in the care of the patient we will con tinue to follow
[2019-10-28 09:07] LABS: Basophils % (A) 1 %; Eosinophils % (A) 1 %; HCT 39.7 % (34.0-46.0); Lymphocytes # (A) 0.4 k/uL (1.0-4.8); Lymphocytes % (A) 12 %; MCHC 33.4 g/dL (31.0-37.0); MCV 92.8 fL (80.0-100.0); Mean Platelet Volume 8.9; Monocytes # (A) 0.3 k/uL (0-1.0); Monocytes % (A) 9 %; Neutrophils # (A) 2.4 k/uL (1.3-7.7); Neutrophils % (A) 75 %; Platelet Count 140 k/uL (150-450); RBC 4.27 m/uL (3.80-5.40); RDW 12.3 % (11.5-15.5); WBC 3.3 k/uL (3.8-10.6)
[2019-10-28 09:17] LABS: HGB 13.2 gm/dL (11.4-16.0)
--- NOTE | 2019-10-28 10:33 | P.PN ---
Subjective Progress Note Date: 10/28/19 this is a 44-year-old female patient of Dr. Maxwell. Patient presented to the ER with complaints of epigastric pain that has been intermittently occurring over the past 2 weeks.atient reports that the pain increased prompting her to come to ER. Patient reports that it radiates to right upper quadrant. Patient reports that she had a gallbladder removed in December of this year. Patient does have a past medical history of asthma, GERD and anemia. Patient also reports that she was getting worked up by GI services outpatient due to elevated liver enzymes Patient denies any change in diet. Patient does report she drinks a glass of wine a night. Patient denies any nausea vomiting or diarrhea. Patient reports normal bowel movements.abdominal x-ray completed showing nonacute abdomen. No change. CT of abdomen and pelvis completed showing no sign of an acute abdomen and pelvis no adverse change compared to old exam there is a cholecystectom since last exam. EKG showing normal sinus rhythm and normal EKG. blood blood cells slightly elevated at 11.7. Total bili 2.0 AST 225 ALT 76. amylase and lipase within normal limits. At this timepatient is resting comfortably in bed. Patient was given Zofran for nausea associatith the medicatpatient repoas improved h pain medication. Patient denies any urinary burning or frequency. Patient denies any fevers at home. On 10/28/2019 patient alert and oriented 3. Patient still having occasional abdominal discomfort. GI services are following and planning MRCP today. Liver enzymes are increasing AST 395 ALT 388 and total bili 1.2. Alkaline phosphatase remains within normal limits. She remains a clear liquid diet. Patient denies chest pain or shortness breath. Patient denies nausea vomiting or diarrhea. Patient denies any urinary burning or frequency Objective - Vital Signs Vital signs: Vital Signs Temp 98.7 F 10/28/19 07:10 Pulse 83 10/28/19 07:10 Resp 17 10/28/19 07:10 BP 111/68 10/28/19 07:10 Pulse Ox 96 10/28/19 07:10 Intake & Output 10/27/19 10/28/19 10/28/19 18:59 06:59 18:59 Intake Total 100 Balance 100 Weight 62.142 kg Intake: Oral 100 Other: Voiding Method Toilet Toilet # Voids 0 2 - Exam Head normocephalic Neck supple Lungs clear to auscultation bilaterally no wheezing or crackles Heart regular rate and rhythm S1-S2, no rub or gallop Abdomen right upper quadrant tenderness to palpation.nondistended positive bowel sounds no hepatosplenomegaly Extremities no edema Neuro alert and orientated to 3 - Labs CBC & Chem 7: 10/28/19 05:55 10/28/19 05:55 Labs: Abnormal Lab Results - Last 24 Hours (Table) 10/28/19 10/28/19 Range/Units 05:55 05:55 WBC 3.3 L (3.8-10.6) k/uL Plt Count 140 L (150-450) k/uL Lymphocytes # 0.4 L (1.0-4.8) k/uL Chloride 109 H (98-107) mmol/L BUN 5 L (7-17) mg/dL Calcium 8.0 L (8.4-10.2) mg/dL AST 395 H (14-36) U/L ALT 388 H (4-34) U/L Total Protein 5.8 L (6.3-8.2) g/dL Albumin 3.2 L (3.5-5.0) g/dL Assessment and Plan Assessment: 1. Right upper quadrant and epigastric abdominal pain.abdominal x-ray completed showing nonacute abdomen. No change.CT of abdomen and pelvis completed showing no sign of acute abdomen and pelvis. No adverse change compared to old exam. There is a cholecystectomy last exam.amylase and lipase within normal limits. patient currently maintained on clear liquid diet. per GI services for liver serologies have been ordered MRCP of the abdomen ordered continue with clear liquid diet. 2. Elevated liver enzymes.total bili 2.0. AST 225, aLT 76 and alkaline phosphatase 73. Patient does reports she's been previously worked up outpatient with GI services for elevated liver enzymes. aST increasing to 395 and ALT 388 total bili 1.2. 3. History of cholecystectomy in December 2018 4. history of GERD 5. History of deafness in right ear 6. History of asthma no exacerbation at this time 7. Nicotine use. Patient educated greater than 3 minutes on smoking cessation. declined nicotine patch at this time DVT prophylaxis heparin. GI prophylaxis Protonix I performed an examination of the patient and discussed their management with the Nurse Practitioner. I have reviewed the Nurse Practitioner's notes and agree with the documented findings and plan of care
[2019-10-28 11:24] LABS: Alpha Fetoprotein, Tumor Mkr 4.6 ng/mL (0.0-7.9)
[2019-10-28 11:26] LABS: Ferritin 156.9 ng/mL (10.0-291.0)
[2019-10-28 11:38] LABS: Ceruloplasmin 22.3 mg/dL (20.0-60.0)
[2019-10-28] MEDS: ACETAMINOPHEN TAB 325 MG TAB PO PRN (15:24)
--- NOTE | 2019-10-28 16:15 | MR ---
EXAMINATION TYPE: MR MRCP DATE OF EXAM: 10/28/2019 COMPARISON: Abdominal ultrasound and CT from yesterday HISTORY: r/o CBD stone, elevated LFTS/bili Standard multiplanar, multisequence MRI departmental protocol Multiplanar, multisequence images of the abdomen focus on the biliary system were acquired. Thin and thick slice MRCP imaging performed on a MRI scanner. FINDINGS: LIVER/GALLBLADDER/PANCREAS/BILIARY SYSTEM: Gallbladder not visualized consistent with history of chol ecystectomy. Liver size mildly enlarged but stable from prior. No significant signal dropout on out o f phase images. No concerning solid or cystic intrahepatic mass. No intrahepatic biliary dilatation. Common bile duct measures up to just over 8 mm near gio hepatis which is not suspiciously dilated a fter cholecystectomy. No filling defect noted to suggest retained stone. Pancreatic duct is identifie d and not suspiciously dilated. Pancreas is overall normal in size. OTHER: Patient has very little intra-abdominal fat making evaluation slightly suboptimal. Lung bases are clear. The spleen and both adrenal glands are normal in size. No concerning renal masses or hydro nephrosis. No suspicious bowel dilatation. Osseous structures are intact. IMPRESSION: No worrisome intrahepatic mass or biliary dilatation. No CBD stone.
[2019-10-28 16:49] LABS: Hepatitis A Antibody IgM Non-Reactive (Non-Reactive); Hepatitis B Core IgM Non-Reactive (Non-Reactive); Hepatitis B Surface Antigen Non-Reactive (Non-Reactive); Hepatitis C IgG Antibody Non-Reactive (Non-Reactive)
[2019-10-28 19:56] VITALS: RESP 16
--- NOTE | 2019-10-29 01:05 | P.PN ---
Subjective Progress Note Date: 10/28/19 Principal diagnosis: Elevated liver enzymes, abdominal pain Patient seen lying in bed. He reports that the abdominal pain is improved and she is reporting less pain medications. Asking for diet to be advanced. Objective - Vital Signs Vital signs: Vital Signs Temp 98.7 F 10/28/19 07:10 Pulse 83 10/28/19 07:10 Resp 17 10/28/19 07:10 BP 111/68 10/28/19 07:10 Pulse Ox 96 10/28/19 07:10 Intake & Output 10/27/19 10/28/19 10/28/19 18:59 06:59 18:59 Intake Total 100 600 Balance 100 600 Weight 62.142 kg Intake: Intake, IV Titration 600 Amount Sodium Chloride 0.9% 1, 600 000 ml @ 75 mls/hr IV . [id number] [facility] Rx#:[id number] Oral 100 Other: Voiding Method Toilet Toilet # Voids 0 2 - Exam On physical examination, patient appears comfortable in no apparent distress. HEAD: Normocephalic, atraumatic. EYES: No scleral icterus. No conjunctival injection. MOUTH: No lesions, tongue midline. NECK: Trachea midline, no gross abnormalities. CHEST: Clear to auscultation with no wheezing or rhonchi appreciated. HEART: Regular rate and rhythm. ABDOMEN: Soft, less tender to palpation. Bowel sounds are positive. No organomegaly. No guarding or rigidity. EXTREMITIES: No pedal edema. SKIN: No rashes, no jaundice. NEUROLOGIC: Alert and oriented x3. No focal deficits. - Labs CBC & Chem 7: 10/28/19 05:55 10/28/19 05:55 Labs: Abnormal Lab Results - Last 24 Hours (Table) 10/28/19 10/28/19 Range/Units 05:55 05:55 WBC 3.3 L (3.8-10.6) k/uL Plt Count 140 L (150-450) k/uL Lymphocytes # 0.4 L (1.0-4.8) k/uL Chloride 109 H (98-107) mmol/L BUN 5 L (7-17) mg/dL Calcium 8.0 L (8.4-10.2) mg/dL AST 395 H (14-36) U/L ALT 388 H (4-34) U/L Total Protein 5.8 L (6.3-8.2) g/dL Albumin 3.2 L (3.5-5.0) g/dL Assessment and Plan (1) Elevated liver enzymes Narrative/Plan: 44-year-old female presenting to the hospital with complaints of abdominal pain. Previously the patient had undergone cholecystectomy for biliary dyskinesia. On current presentation she reports severe epigastric abdominal pain without radiation. She was found to have associated elevation in liver enzymes with total bilirubin 2.0, alkaline phosphatase 73, AST 225 and ALT 76. Nausea associated with episode without associated vomiting. ultrasound of the abdomen significant for slight splenomegaly and a common bile duct of 1.1 cm. Previously she had been evaluated for elevated liver enzymes but is not followed up after cholecystectomy. She reports 1 glass of alcohol consumption nightly. Denies any family history or personal history of intrinsic liver disease. Unknown elevation in liver enzymes, we will order MRI/MRCP abdomen to rule out biliary pathology, as well as full serology to rule out intrinsic liver disease. Current Visit: Yes Status: Acute Code(s): R74.8 - ABNORMAL LEVELS OF OTHER SERUM ENZYMES SNOMED Code(s): 994299832 (2) Abdominal pain Current Visit: Yes Status: Acute Code(s): R10.9 - UNSPECIFIED ABDOMINAL PAIN SNOMED Code(s): 69147434 (3) Biliary dyskinesia Current Visit: No Status: Acute Code(s): K82.8 - OTHER SPECIFIED DISEASES OF GALLBLADDER SNOMED Code(s): 767428222 Plan: supportive care Okay for diet as tolerated Continue to monitor liver enzymes Full liver serologies and negative date MRCP of the abdomen ordered and pending Continue fluid hydration, pain management Thank you for allowing us to participate in the care of the patient we will continue to follow
[2019-10-29] MEDS: METOCLOPRAMIDE 5 MG/ML 2 ML VIAL IVP SCH ×2 (05:17→14:33)
[2019-10-29] MEDS: HYDROmorphone 0.5 MG/0.5 ML SYRINGE IVP PRN ×2 (05:18→09:31)
[2019-10-29 07:39] VITALS: BP 118/71; PULSE 70; TEMP 98.3
[2019-10-29 08:05] LABS: Basophils % (A) 1 %; Eosinophils # (A) 0.2 k/uL (0-0.7); Eosinophils % (A) 6 %; HCT 36.7 % (34.0-46.0); HGB 12.6 gm/dL (11.4-16.0); Lymphocytes # (A) 0.9 k/uL (1.0-4.8); Lymphocytes % (A) 31 %; MCH 31.1 pg (25.0-35.0); MCHC 34.4 g/dL (31.0-37.0); MCV 90.4 fL (80.0-100.0); Mean Platelet Volume 8.2; Monocytes # (A) 0.3 k/uL (0-1.0); Monocytes % (A) 10 %; Neutrophils # (A) 1.4 k/uL (1.3-7.7); Neutrophils % (A) 48 %; Platelet Count 137 k/uL (150-450); RBC 4.06 m/uL (3.80-5.40); RDW 12.2 % (11.5-15.5); WBC 2.9 k/uL (3.8-10.6)
[2019-10-29 08:14] LABS: ALT 246 U/L (4-34); AST 133 U/L (14-36); African American GFR (CKD) >90 (>60 ml/min/1.73 sqM); Albumin 3.2 g/dL (3.5-5.0); Alkaline Phosphatase 99 U/L (38-126); Anion Gap 4 mmol/L; Blood Urea Nitrogen 6 mg/dL (7-17); Calcium 8.1 mg/dL (8.4-10.2); Carbon Dioxide 25 mmol/L (22-30); Chloride 111 mmol/L (98-107); Glucose 92 mg/dL (74-99); Non-African American GFR(CKD) >90 (>60 ml/min/1.73 sqM); Potassium 3.7 mmol/L (3.5-5.1); Sodium 140 mmol/L (137-145); Total Bilirubin 0.5 mg/dL (0.2-1.3); Total Protein 5.8 g/dL (6.3-8.2)
[2019-10-29] MEDS: PANTOPRAZOLE 40 MG/10 ML VIAL IV SCH (08:27)
[2019-10-29] MEDS: HEPARIN SODIUM,PORCINE 5,000 UNIT/ML 1 ML VIAL SQ SCH (08:30)
[2019-10-29 12:48] LABS: Albumin 3.03 g/dL (3.80-4.90); Gamma Globulin 0.71 g/dL (0.70-1.50)
--- NOTE | 2019-10-29 13:50 | P.DS ---
Providers Date of admission: 10/27/19 04:52 Expected date of discharge: 10/29/19 Attending physician: Mary Thompson Consults: 10/27/19 04:51 Consult Physician Routine Consulting Provider: Nahun Carr Consult Reason/Comments: intractable abdominal pain, hyperbilirubinemia, transaminitis Do you want consulting provider notified?: Yes Primary care physician: Theresa Maxwell Hospital Course: Discharge diagnosis 1. Right upper quadrant and epigastric abdominal pain.abdominal x-ray completed showing nonacute abdomen. No change.CT of abdomen and pelvis completed showing no sign of acute abdomen and pelvis. No adverse change compared to old exam. There is a cholecystectomy last exam.amylase and lipase within normal limits. patient currently maintained on clear liquid diet. Liver serologies negative. MRCP completed showing no worrisome intrahepatic mass or biliary dilation no CBD stone. Discussed case with GI nurse practitioner okay to discharge patient this time patient will be discharged with Protonix and follow-up GI services for further workup. Liver enzymes are trending down. Repeat cmp for 3 days 2. Elevated liver enzymes.total bili 2.0. AST 225, aLT 76 and alkaline phosphatase 73. Patient does reports she's been previously worked up outpatient with GI services for elevated liver enzymes. aST increasing to 395 and ALT 388 total bili 1.2. 3. History of cholecystectomy in December 2018 4. history of GERD 5. History of deafness in right ear 6. History of asthma no exacerbation at this time 7. Nicotine use. Patient educated greater than 3 minutes on smoking cessation. declined nicotine patch at this time Hospital course this is a 44-year-old female patient of Dr. Maxwell. Patient presented to the ER with complaints of epigastric pain that has been intermittently occurring over the past 2 weeks.atient reports that the pain increased prompting her to come to ER. Patient reports that it radiates to right upper quadrant. Patient reports that she had a gallbladder removed in December of this year. Patient does have a past medical history of asthma, GERD and anemia. Patient also reports that she was getting worked up by GI services outpatient due to elevated liver enzymes Patient denies any change in diet. Patient does report she drinks a glass of wine a night. Patient denies any nausea vomiting or diarrhea. Patient reports normal bowel movements.abdominal x-ray completed showing nonacute abdomen. No change. CT of abdomen and pelvis completed showing no sign of an acute abdomen and pelvis no adverse change compared to old exam there is a cholecystectom since last exam. EKG showing normal sinus rhythm and normal EKG. blood blood cells slightly elevated at 11.7. Total bili 2.0 AST 225 ALT 76. amylase and lipase within normal limits. At this timepatient is resting comfortably in bed. Patient denies any urinary burning or frequency. Patient denies any fevers at home. On 10/28/2019 patient alert and oriented 3. Patient still having occasional abdominal discomfort. GI services are following and planning MRCP today. Liver enzymes are increasing AST 395 ALT 388 and total bili 1.2. Alkaline phosphatase remains within normal limits. She remains a clear liquid diet. Patient denies chest pain or shortness breath. Patient denies nausea vomiting or diarrhea. Patient denies any urinary burning or frequency On 10/29/2019 patient alert and oriented 3. Patient did have MRCP showing no worrisome intrahepatic mass or biliary dilation. Liver enzymes did improve. Did discuss case with GI services. Patient has been cleared for discharge and will follow-up outpatient for possible EGD and further workup. Patient will be DC'd on Protonix per GI. Patient denies any chest pain or shortness of breath. Patient denies any nausea vomiting or diarrhea. Patient denies any urinary burning or frequency. Patient will be DC'd with tramadol prescription for pain. CMP in 3 days I performed an examination of the patient and discussed their management with the Nurse Practitioner. I have reviewed the Nurse Practitioner's notes and agree with the documented findings and plan of care Patient Condition at Discharge: Stable Plan - Discharge Summary Discharge Rx Participant: No New Discharge Prescriptions: New Pantoprazole [Protonix] 40 mg PO AC-BRKFST 30 Days #30 tablet. Discharge Medication List Pantoprazole [Protonix] 40 mg PO AC-BRKFST 30 Days #30 tablet. 10/29/19 [Rx] Follow up Appointment(s)/Referral(s): Theresa Maxwell MD [Primary Care Provider] - 1-2 days Nahun aCrr MD [STAFF PHYSICIAN] - 3 Weeks (follow up for elevated LFTS, epigastric pain) Activity/Diet/Wound Care/Special Instructions: Tramadol prescription for pain given to nursing staff Activity as tolerated Diet as tolerated Discharge Disposition: HOME SELF-CARE
[2019-10-30] MEDS ORDERED: PANTOPRAZOLE 40 MG TABLET PO SCH (07:30)
== END 2019-10-29 14:55 | disposition home or self-care (01) ==
LOC: EC 01:34 → 6NMEDSUR 04:52 → 4SSUR 12:32
PROVIDERS: ADMIT Internal Medicine; ATTEND Internal Medicine
DX: R10.11 Right upper quadrant pain (principal); D72.829 Elevated white blood cell count, unspecified; F17.200 Nicotine dependence, unspecified, uncomplicated; F32.9 Major depressive disorder, single episode, unspecified; H91.91 Unspecified hearing loss, right ear; J45.909 Unspecified asthma, uncomplicated; Z90.49 Acquired absence of other specified parts of digestive tract; Z90.711 Acquired absence of uterus with remaining cervical stump; R74.8 Abnormal levels of other serum enzymes; Z71.6 Tobacco abuse counseling
CPT/HCPCS: 96376 ×4; 96372 ×2; 96375 ×2; 96374; 99285; 36415; 93005; 86376; 80053 ×3; 80074; 82728; 82150; 83690; 85025 ×3; 81003; 81025; 83516 ×2; 82103; 82105; 84165; 82390; 86038; 74019; 76700; 74177; 74181; G0378 ×4; J2270; J1644 ×2; J2765 ×3; J2405; J1170 ×4; C9113 ×3; Q9967

== ENCOUNTER → 2019-12-15 | Outpatient (CLI) | payer BC ==
[2019-12-15 08:43] LABS: Basophils # (A) 0.1 k/uL (0-0.2); Basophils % (A) 1 %; Eosinophils # (A) 0.2 k/uL (0-0.7); Eosinophils % (A) 4 %; HCT 44.8 % (34.0-46.0); HGB 14.7 gm/dL (11.4-16.0); Lymphocytes # (A) 1.4 k/uL (1.0-4.8); Lymphocytes % (A) 22 %; MCH 29.9 pg (25.0-35.0); MCHC 32.9 g/dL (31.0-37.0); MCV 90.9 fL (80.0-100.0); Mean Platelet Volume 8.4; Monocytes # (A) 0.3 k/uL (0-1.0); Monocytes % (A) 5 %; Neutrophils # (A) 4.3 k/uL (1.3-7.7); Neutrophils % (A) 66 %; Platelet Count 192 k/uL (150-450); RBC 4.93 m/uL (3.80-5.40); RDW 12.5 % (11.5-15.5); WBC 6.5 k/uL (3.8-10.6)
[2019-12-15 10:55] LABS: Erythrocyte Sedimentation Rate 5 mm/hr (0-20)
[2019-12-15 16:42] LABS: ALT 13 U/L (8-44); AST 19 U/L (13-35); African American GFR (CKD) 104.7 (60.0-200.0); Albumin/Globulin Ratio 2.61 (1.60-3.17); Alkaline Phosphatase 47 U/L (41-126); C Reactive Protein <0.4 mg/dL (0.0-0.8); Calcium 9.3 mg/dL (8.7-10.3); Carbon Dioxide 28.8 mmol/L (21.6-31.8); Chloride 106 mmol/L (96-109); Globulin 1.8 g/dL (1.6-3.3); Glucose 104 mg/dL (70-110); Non-African American GFR(CKD) 90.3 (60.0-200.0); Potassium 4.1 mmol/L (3.5-5.5); Sodium 140 mmol/L (135-145); Total Bilirubin 0.8 mg/dL (0.3-1.2); Total Protein 6.5 g/dL (6.2-8.2)
[2019-12-15 16:46] LABS: Amylase 66 U/L (23-121)
[2019-12-15 17:43] LABS: Gliadin AB IgA, Deaminated NEGATIVE (NEGATIVE); Gliadin AB IgA, Unit 1.8 U/mL; Gliadin AB IgG, Deaminated NEGATIVE (NEGATIVE)
== END | disposition home or self-care (01) ==
LOC: LABWHC1 08:06
PROVIDERS: ATTEND Internal Medicine
DX: R10.9 Unspecified abdominal pain (principal)
CPT/HCPCS: 36415; 80053; 82150; 83516; 83690; 84439; 84443; 85025; 85652; 86140

== ENCOUNTER 2019-12-27 10:22 | Day surgery (SDC) | payer BC ==
[2019-12-23 15:50] VITALS: BMI 24.7
[~2019-12-27 10:22] MED LIST changes: -BUPIVACAIN-EPI 0.25%-1:200,000 30 ML VIAL SQ ONE; -DEXAMETHASONE SOD PHOSPHATE 10 MG/ML 1 ML VIAL IV ONE; -GLYCOPYRROLATE 0.2 MG/ML 2 ML VIAL ONE; -HEPARIN SODIUM,PORCINE 5,000 UNIT/ML 1 ML VIAL SQ ONE; -HYDROcodone/APAP 5-325MG 1 EACH TAB PO ONE; -HYDROcodone/APAP 5-325MG 1 EACH TAB PO PRN; -KETOROLAC 30 MG/ML 1 ML VIAL IVP ONE; -LACTATED RINGERS 1,000 ML IV ONE; -LIDOCAINE 1% INJ 10MG/ML (20 ML MDV) ONE; +MIDAZOLAM 2 MG/2 ML VIAL IV PRN; -NALOXONE 0.4 MG/ML 1 ML VIAL IV PRN; -NEOSTIGMINE 1 MG/ML 10 ML VIAL ONE; -ONDANSETRON 4 MG/2 ML VIAL IVP ONE; -PROPOFOL 10 MG/ML 20 ML VIAL IV ONE; -ROCURONIUM BROMIDE 10 MG/ML 10 ML VIAL IV ONE; -SCOPOLAMINE 1.5MG/72HR PATCH TRANSDERM ONE; -ceFAZolin IN SWFI 2 GM/20 ML SYRINGE IVP ONE; -fentaNYL (PF) 50 MCG/ML 2 ML AMP ONE
[2019-12-27 10:43] VITALS: RESP 16; TEMP 97.4
[2019-12-27] MEDS ORDERED: MIDAZOLAM 2 MG/2 ML VIAL ONE (11:12)
[2019-12-27] MEDS ORDERED: LIDOCAINE 1% INJ 10MG/ML (20 ML MDV) ONE (11:12)
[2019-12-27] MEDS ORDERED: PROPOFOL 10 MG/ML 20 ML VIAL IV ONE (11:12)
--- NOTE | 2019-12-27 11:51 | P.PCN ---
Date of Procedure: 12/27/19 Description of Procedure: Brief history: Patient is a pleasant scheduled for an elective upper endoscopy as well as colonoscopy as a part of evaluation of epigastric abdominal pain and diarrhea. Patient has previously been seen in the hospital for similar complaints. She describes epigastric and right upper quadrant abdominal pain. Currently on Protonix therapy with no improvement in her symptoms. She reports pain is worse after eating and with movement and lasting approximately an hour in duration. No prior EGD or colonoscopy reported. Procedure performed: Esophagogastroduodenoscopy with biopsy Colonoscopy with polypectomy and biopsy Estimated blood loss: Minimal. Preoperative diagnosis: Epigastric abdominal pain, diarrhea Anesthesia: [facility] [place] [facility] [place] Procedure: After informed consent was obtained from the patient was brought into the endoscopy unit and IV sedation was administered by anesthesia under continuous monitoring. Initially upper endoscopy was done. The Olympus GF 190 video endoscope was inserted into the mouth and esophagus intubated without any difficulty and was gradually advanced into the stomach and duodenum and carefully examined. The bulb and second part of the duodenum appeared normal, with. The scope was then withdrawn into the stomach adequately insufflated with air and upon careful examination the antrum and body, cardia and fundus appeared normal, except for mild punctate erythema streaking erythema in the antrum and body suggestive of mild gastritis biopsies taken. The scope was then withdrawn into the esophagus. The GE junction was located at 38 cm to the incisors, and appeared regular with biopsies of the Z line. It appeared regular with no erythema erosions or ulcerations. Rest of the esophagus appeared normal. Patient tolerated the procedure well. At this time the patient continued to remain sedation. Initial digital rectal examination was normal. Olympus CF 190 video colonoscope was then inserted into the rectum and gradually advanced to the cecum without any difficulty. Careful examination was performed as the scope was gradually being withdrawn. The prep was excellent. The cecum, ascending colon, transverse colon, descending colon, sigmoid colon and rectum appeared normal, with random biopsies taken of the right and left colon in the setting of diarrhea. Diminutive 2 mm sessile ascending colon polyp removed with cold forcep polypectomy. Retroflexion was performed in the rectum and no lesions were noted. Patient tolerated the procedure well. Impression: 1. Mild gastritis antrum and body, biopsied. Biopsies of the duodenum and Z line. 2. Normal-appearing colon from rectum to cecum with random biopsies taken of the right colon and left colon in the setting of diarrhea. Diminutive 2 mm ascending colon polyp removed with cold forcep polypectomy. Recommendations: Findings of this examination were discussed with the patient as well as her . Okay to resume diet. Okay to resume medications. Continue Protonix therapy. Await pathology from biopsies. Follow up in gastroenterology clinic as previously scheduled.
[2019-12-27 12:11] VITALS: BP 130/70; PULSE 84
== END 2019-12-27 12:40 | disposition home or self-care (01) ==
LOC: ORWHC2ENDO 10:22
PROVIDERS: ATTEND Internal Medicine
DX: K29.50 Unspecified chronic gastritis without bleeding (principal); K22.8 Other specified diseases of esophagus; K63.5 Polyp of colon; K63.89 Other specified diseases of intestine; H91.90 Unspecified hearing loss, unspecified ear; K21.9 Gastro-esophageal reflux disease without esophagitis; D64.9 Anemia, unspecified; F17.200 Nicotine dependence, unspecified, uncomplicated; Z90.49 Acquired absence of other specified parts of digestive tract; Z90.710 Acquired absence of both cervix and uterus; Z90.89 Acquired absence of other organs; Z98.51 Tubal ligation status; Z98.890 Other specified postprocedural states; Z97.2 Presence of dental prosthetic device (complete) (partial); Z87.898 Personal history of other specified conditions
CPT/HCPCS: 88305; 45380; 43239; J2250; J2001; J2704

== ENCOUNTER 2020-04-08 16:14 | Emergency (ER) | payer BC ==
[2020-04-08] MEDS ORDERED: SODIUM CHLORIDE 0.9% 1,000 ML IV STA (16:47)
[2020-04-08] MEDS ORDERED: KETOROLAC 30 MG/ML 1 ML VIAL IVP STA (16:47)
[2020-04-08] MEDS ORDERED: PANTOPRAZOLE 40 MG/10 ML VIAL IVP STA (16:48)
[2020-04-08 17:01] LABS: Basophils # (A) 0.1 k/uL (0-0.2); Basophils % (A) 1 %; Eosinophils # (A) 0.2 k/uL (0-0.7); Eosinophils % (A) 3 %; HCT 48.2 % (34.0-46.0); HGB 16.5 gm/dL (11.4-16.0); Lymphocytes # (A) 0.9 k/uL (1.0-4.8); Lymphocytes % (A) 14 %; MCH 31.3 pg (25.0-35.0); MCHC 34.3 g/dL (31.0-37.0); MCV 91.3 fL (80.0-100.0); Mean Platelet Volume 8.2; Monocytes # (A) 0.6 k/uL (0-1.0); Monocytes % (A) 9 %; Neutrophils # (A) 4.6 k/uL (1.3-7.7); Neutrophils % (A) 71 %; Platelet Count 185 k/uL (150-450); RBC 5.28 m/uL (3.80-5.40); RDW 12.6 % (11.5-15.5); WBC 6.5 k/uL (3.8-10.6)
[2020-04-08 17:01] LABS: Appearance,Urine Clear (Clear); Bilirubin,Urine Negative (Negative); Blood,Urine Negative (Negative); Color,Urine Light Yellow; Glucose,Urine (UA) Negative (Negative); Ketones,Urine Negative (Negative); Leukocyte Esterase,Urine Negative (Negative); Nitrite,Urine Negative (Negative); PH, Urine 6.5 (5.0-8.0); Protein,Urine Negative (Negative); Specific Gravity,Urine 1.003 (1.001-1.035); Urobilinogen,Urine <2.0 mg/dL (<2.0)
[2020-04-08 17:08] LABS: Partial Thromboplastin Time 23.5 sec (22.0-30.0)
[2020-04-08 17:10] LABS: ALT 107 U/L (4-34); AST 258 U/L (14-36); African American GFR (CKD) >90 (>60 ml/min/1.73 sqM); Albumin 5.2 g/dL (3.5-5.0); Alkaline Phosphatase 63 U/L (38-126); Amylase 59 U/L (30-110); Anion Gap 9 mmol/L; Blood Urea Nitrogen 11 mg/dL (7-17); Calcium 9.7 mg/dL (8.4-10.2); Carbon Dioxide 28 mmol/L (22-30); Chloride 102 mmol/L (98-107); Glucose 95 mg/dL (74-99); Non-African American GFR(CKD) >90 (>60 ml/min/1.73 sqM); Potassium 4.2 mmol/L (3.5-5.1); Sodium 139 mmol/L (137-145); Total Bilirubin 0.9 mg/dL (0.2-1.3); Total Protein 8.1 g/dL (6.3-8.2)
--- NOTE | 2020-04-08 17:19 | ED ---
Abdominal Pain HPI - General Source: patient Mode of arrival: ambulatory Limitations: no limitations <Selina Chambers - Last Filed: 04/09/20 00:33> <Joanne Price - Last Filed: 04/12/20 11:53> - General Chief Complaint: Abdominal Pain Stated Complaint: Abd Pain Time Seen by Provider: 04/08/20 16:26 - History of Present Illness Initial Comments: Patient is a 44-year-old female presenting to emergency Department with complaints of increasing abdominal pain times one week. Patient states she has a long history of chronic gastritis and has been following with Dr. Carr. Patient currently takes Protonix and a Gas-X medication. Patient states her pain started increasing within the past week which started as her normal flareups. Patient states the last 2 days the pain has been more severe. She describes the pain as epigastric and right upper quadrant and very sharp in nature, 8/10 pain scale. Patient states when she does get these flareups she often notices that her liver enzymes are also elevated. She did call her doctor who prescribed her tramadol however this does not seem to be helping. Patient denies any nausea, vomiting, fever, chills. She does report diarrhea however this is normal for her. Her only abdominal surgery was a cholecystectomy. Patient has had recent imaging as well as colonoscopy and endoscopically. Patient reports no abnormal findings. She denies any chest pain, shortness of breath. She has no other further complaints at this time. (Selina Chambers) - Related Data Home Medications Medication Instructions Recorded Confirmed Dicyclomine HCl 20 mg PO QID 04/08/20 04/08/20 Pantoprazole [Protonix] 40 mg PO BID PRN 04/08/20 04/08/20 traMADol HCL 50 mg PO Q6H PRN 04/08/20 04/08/20 Allergies Allergy/AdvReac Type Severity Reaction Status Date / Time No Known Allergies Allergy Verified 04/08/20 19:02 Review of Systems ROS Other: All systems not noted in ROS Statement are negative. <Selina Chambers - Last Filed: 04/09/20 00:33> ROS Other: All systems not noted in ROS Statement are negative. <Joanne Price - Last Filed: 04/12/20 11:53> ROS Statement: Those systems with pertinent positive or pertinent negative responses have been documented in the HPI. Past Medical History Past Medical History: GERD/Reflux, Hearing Disorder / Deafness Additional Past Medical History / Comment(s): past hx ANEMIA. DEAF RIGHT EAR. STRESS INCONTINENCE. HX ENLARGED LIVER, ENZYMES NL NOW. C/O ONGOING ABD PAIN. History of Any Multi-Drug Resistant Organisms: None Reported Past Surgical History: Cholecystectomy, Hysterectomy, Tonsillectomy, Tubal Ligation Additional Past Surgical History / Comment(s): RIGHT EARDRUM SURGERY. Partial hysterectomy. Past Anesthesia/Blood Transfusion Reactions: Motion Sickness Additional Past Anesthesia/Blood Transfusion Reaction / Comment(s): No hx of blood transfusions, states hard time waking up in past Past Psychological History: Depression Smoking Status: Current every day smoker Past Alcohol Use History: Occasional - Past Family History Mother Family Medical History: No Reported History <Selina Chambers - Last Filed: 04/09/20 00:33> General Exam Limitations: no limitations <Selina Chambers - Last Filed: 04/09/20 00:33> - General Exam Comments Initial Comments: GENERAL: Well-appearing, well-nourished and in no acute distress. HEAD: Atraumatic, normocephalic. EYES: Pupils equal round and reactive to light, extraocular movements intact, sclera anicteric, conjunctiva are normal. ENT: TMs normal, nares patent, oropharynx clear without exudates. Moist mucous membranes. NECK: Normal range of motion, supple without lymphadenopathy or JVD. LUNGS: Breath sounds clear to auscultation bilaterally and equal. No wheezes rales or rhonchi. HEART: Regular rate and rhythm without murmurs, rubs or gallops. ABDOMEN: Tender to palpation epigastric and right upper quadrant. Soft, normoactive bowel sounds. No guarding, no rebound. No masses appreciated. : Deferred EXTREMITIES: Normal range of motion, no pitting or edema. No clubbing or cyanosis. NEUROLOGICAL: Normal speech, normal gait. PSYCH: Normal mood, normal affect. SKIN: Warm, Dry, normal turgor, no rashes or lesions noted. (Selina Chambers) Course Vital Signs 04/08/20 04/08/20 16:17 19:23 Temperature 97.7 F 98.2 F Pulse Rate 88 81 Respiratory 18 16 Rate Blood Pressure 138/59 138/88 O2 Sat by Pulse 98 98 Oximetry Medical Decision Making - Lab Data Result diagrams: 04/08/20 16:45 04/08/20 16:45 <Selina Chambers - Last Filed: 04/09/20 00:33> - Lab Data Result diagrams: 04/08/20 16:45 04/08/20 16:45 <Joanne Price - Last Filed: 04/12/20 11:53> - Medical Decision Making Patient is a 44-year-old female with history of chronic gastritis, presenting with abdominal pain x 1 week. Vitals are stable. Lab work shows mild transaminitis, no other acute findings. Urine is normal. I did review nohemi ent's recent imaging. There is been no acute findings. Patient was given fluids, Protonix, analgesics, GI cocktail. She reports improvement in her symptoms. She is comfortable being discharged. She doesn't appointment with a GI specialist in 2 weeks and feels comfortable waiting until that appointment. Patient does have pain medications at home. She'll continue using some medications. Return parameters were discussed with the patient and she verbalized understanding. Case discussed with Dr. Pirce. (Selina Chambers) I was available for consultation in the emergency department. The history and physical exam were done by the midlevel provider. I was consulted for this patients care. I reviewed the case with the midlevel provider and based on their presentation of the patient, I agree with the assessment, medical decision making and plan of care as documented. Chart was dictated using [employer] dictation software. Attempts were made to correct any dictation errors however some typographical errors may persist. Patient was seen during a national state of emergency due to the Covid-19 pandemic. (Joanne Price) - Lab Data Lab Results 04/08/20 04/08/20 04/08/20 Range/Units 16:35 16:45 16:45 WBC 6.5 (3.8-10.6) k/uL RBC 5.28 (3.80-5.40) m/uL Hgb 16.5 H (11.4-16.0) gm/dL Hct 48.2 H (34.0-46.0) % MCV 91.3 (80.0-100.0) fL MCH 31.3 (25.0-35.0) pg MCHC 34.3 (31.0-37.0) g/dL RDW 12.6 (11.5-15.5) % Plt Count 185 (150-450) k/uL Neutrophils % 71 % Lymphocytes % 14 % Monocytes % 9 % Eosinophils % 3 % Basophils % 1 % Neutrophils # 4.6 (1.3-7.7) k/uL Lymphocytes # 0.9 L (1.0-4.8) k/uL Monocytes # 0.6 (0-1.0) k/uL Eosinophils # 0.2 (0-0.7) k/uL Basophils # 0.1 (0-0.2) k/uL PT 10.0 (9.0-12.0) sec INR 1.0 (<1.2) APTT 23.5 (22.0-30.0) sec Sodium (137-145) mmol/L Potassium (3.5-5.1) mmol/L Chloride (98-107) mmol/L Carbon Dioxide (22-30) mmol/L Anion Gap mmol/L BUN (7-17) mg/dL Creatinine (0.52-1.04) mg/dL Est GFR (CKD-EPI)AfAm (>60 ml/min/1.73 sqM) Est GFR (CKD-EPI)NonAf (>60 ml/min/1.73 sqM) Glucose (74-99) mg/dL Plasma Lactic Acid Be (0.7-2.0) mmol/L Calcium (8.4-10.2) mg/dL Total Bilirubin (0.2-1.3) mg/dL AST (14-36) U/L ALT (4-34) U/L Alkaline Phosphatase (38-126) U/L Total Protein (6.3-8.2) g/dL Albumin (3.5-5.0) g/dL Amylase (30-110) U/L Lipase (23-300) U/L Urine Color Light Yellow Urine Appearance Clear (Clear) Urine pH 6.5 (5.0-8.0) Ur Specific [place] 1.003 (1.001-1.035) Urine Protein Negative (Negative) Urine Glucose (UA) Negative (Negative) Urine Ketones Negative (Negative) Urine Blood Negative (Negative) Urine Nitrite Negative (Negative) Urine Bilirubin Negative (Negative) Urine Urobilinogen <2.0 (<2.0) mg/dL Ur Leukocyte Esterase Negative (Negative) 04/08/20 04/08/20 Range/Units 16:45 16:45 WBC (3.8-10.6) k/uL RBC (3.80-5.40) m/uL Hgb (11.4-16.0) gm/dL Hct (34.0-46.0) % MCV (80.0-100.0) fL MCH (25.0-35.0) pg MCHC (31.0-37.0) g/dL RDW (11.5-15.5) % Plt Count (150-450) k/uL Neutrophils % % Lymphocytes % % Monocytes % % Eosinophils % % Basophils % % Neutrophils # (1.3-7.7) k/uL Lymphocytes # (1.0-4.8) k/uL Monocytes # (0-1.0) k/uL Eosinophils # (0-0.7) k/uL Basophils # (0-0.2) k/uL PT (9.0-12.0) sec INR (<1.2) APTT (22.0-30.0) sec Sodium 139 (137-145) mmol/L Potassium 4.2 (3.5-5.1) mmol/L Chloride 102 (98-107) mmol/L Carbon Dioxide 28 (22-30) mmol/L Anion Gap 9 mmol/L BUN 11 (7-17) mg/dL Creatinine 0.67 (0.52-1.04) mg/dL Est GFR (CKD-EPI)AfAm >90 (>60 ml/min/1.73 sqM) Est GFR (CKD-EPI)NonAf >90 (>60 ml/min/1.73 sqM) Glucose 95 (74-99) mg/dL Plasma Lactic Acid Be 0.8 (0.7-2.0) mmol/L Calcium 9.7 (8.4-10.2) mg/dL Total Bilirubin 0.9 (0.2-1.3) mg/dL AST 258 H (14-36) U/L ALT 107 H (4-34) U/L Alkaline Phosphatase 63 (38-126) U/L Total Protein 8.1 (6.3-8.2) g/dL Albumin 5.2 H (3.5-5.0) g/dL Amylase 59 (30-110) U/L Lipase 169 (23-300) U/L Urine Color Urine Appearance (Clear) Urine pH (5.0-8.0) Ur Specific [place] (1.001-1.035) Urine Protein (Negative) Urine Glucose (UA) (Negative) Urine Ketones (Negative) Urine Blood (Negative) Urine Nitrite (Negative) Urine Bilirubin (Negative) Urine Urobilinogen (<2.0) mg/dL Ur Leukocyte Esterase (Negative) Disposition Is patient prescribed a controlled substance at d/c from ED?: No <Selina Chambers - Last Filed: 04/09/20 00:33> <Joanne Price - Last Filed: 04/12/20 11:53> Clinical Impression: Abdominal pain, Elevated liver enzymes Disposition: HOME SELF-CARE Condition: Stable Instructions (If sedation given, give patient instructions): Abdominal Pain (ED) Additional Instructions: Please return to the Emergency Department if symptoms worsen or any other concerns. Follow up with GI doctor as discussed. Continue with already prescribed medications. Referrals: Theresa Maxwell MD [Primary Care Provider] - 1-2 days
[2020-04-08] MEDS ORDERED: ONDANSETRON 4 MG/2 ML VIAL IVP STA (17:55)
[2020-04-08] MEDS ORDERED: MORPHINE SULFATE 4 MG/ML SYRINGE IVP STA (17:55)
[2020-04-08] MEDS ORDERED: MAG HYDROX/AL HYDROX/SIMETH 30 ML, HYOSCYAMINE ELIXIR 10 ML, LIDOCAINE VISCOUS 2% 10 ML PO STA ×3 (18:35)
[2020-04-08 19:24] VITALS: BP 138/88; PULSE 81; RESP 16; TEMP 98.2
== END 2020-04-08 19:23 | disposition home or self-care (01) ==
LOC: EC 16:14
DX: R10.9 Unspecified abdominal pain (principal); R74.8 Abnormal levels of other serum enzymes; R74.0 Nonspecific elevation of levels of transaminase and lactic acid dehydrogenase [LDH]; R19.7 Diarrhea, unspecified; K21.9 Gastro-esophageal reflux disease without esophagitis; H91.91 Unspecified hearing loss, right ear; F17.200 Nicotine dependence, unspecified, uncomplicated; Z79.899 Other long term (current) drug therapy; Z90.49 Acquired absence of other specified parts of digestive tract; Z90.710 Acquired absence of both cervix and uterus; Z98.51 Tubal ligation status
CPT/HCPCS: 36415; 80053; 82150; 83605; 83690; 85025; 85610; 85730; 81003; 99284; 96374; 96375 ×3; 96361; J2270; J2405; J1885; C9113

== ENCOUNTER → 2023-05-20 | Outpatient (CLI) | payer OTHER ==
--- NOTE | 2023-05-20 11:19 | XR ---
EXAMINATION TYPE: XR lumbar spine 2 or 3V DATE OF EXAM: 05/20/2023 Comparison: None Clinical History: 47-year-old female S39.012A STRAIN OF MUSCLE, FASCIA AND TENDON OF LOWER Findings: Cholecystectomy clips. 5 lumbar type vertebral bodies. Mild degenerative disc disease scattered throu ghout with variable mild disc space narrowing. Vertebral body heights are preserved and alignment is maintained. Impression: Scattered mild early degenerative disc disease. No vertebral compression collapse or malalignment.
== END | disposition home or self-care (01) ==
LOC: RADXRMAIN 10:42
PROVIDERS: ATTEND Emergency Medicine
DX: S39.012A Strain of muscle, fascia and tendon of lower back, initial encounter (principal); M51.36 Other intervertebral disc degeneration, lumbar region
CPT/HCPCS: 72100

== ENCOUNTER → 2023-11-28 | Outpatient (CLI) | payer BC ==
--- NOTE | 2023-12-02 08:50 | MM ---
Reason for Exam: Screening (asymptomatic). Last mammogram was performed 6 year(s) and 1 month(s) ago. Patient History: Menarche at age 11. First Full-Term at age 20. Left ovary removed at age 37. Hysterectomy at age 37. Hormonal Contraceptives, starting at age 18 for 5 years. 10/22/2017, Benign Core Biopsy on the left side. 10/22/2017, Benign Core Biopsy on the right side. Risk Values: Esperanza 5 year model risk: 1.5%. NCI Lifetime model risk: 11.4%. Prior Study Comparison: 03/09/2012 Bilateral Screening Mammogram, [facility]. 10/16/2017 Bilateral Diagnostic Mammogram, [facility]. 10/22/2017 Bilateral Diagnostic Mammogram, [facility]. Tissue Density: The breast tissue is heterogeneously dense. This may lower the sensitivity of mammography. Findings: Analyzed By CAD. Areas of bilateral asymmetric densities remain unchanged. A microclip within each breast from prior biopsies. There is no suspicious group of microcalcifications or new suspicious mass in either breast.Areas of bilateral asymmetric densities remain unchanged. A microclip within each breast from prior biopsies. There is no suspicious group of microcalcifications or new suspicious mass in either breast. A palpable marker has been placed along the posterior upper outer arteries of the right breast. Overall Assessment: Incomplete: need additional imaging evaluation, BI-RAD 0 Management: Diagnostic Breast Ultrasound of the right breast. For the patient directly palpable site. [facility] will attempt to contact patient to return for supplemental views and ultrasound if indicated. Electronically signed and approved by: Cecelia Nelson M.D. Radiologist
== END | disposition home or self-care (01) ==
LOC: RADMAMWWP 15:51
PROVIDERS: ATTEND Family Medicine
DX: Z12.31 Encounter for screening mammogram for malignant neoplasm of breast (principal)
CPT/HCPCS: 77063; 77067

== ENCOUNTER → 2023-12-08 | Outpatient (CLI) | payer BC ==
--- NOTE | 2023-12-08 11:20 | USB ---
Reason for Exam: Additional evaluation requested from abnormal screening. Patient History: Menarche at age 11. First Full-Term at age 20. Left ovary removed at age 37. Hysterectomy at age 37. Hormonal Contraceptives, starting at age 18 for 5 years. 10/22/2017, Benign Core Biopsy on the left side. 10/22/2017, Benign Core Biopsy on the right side. Risk Values: Esperanza 5 year model risk: 1.5%. NCI Lifetime model risk: 11.4%. Technique: Method: Targeted. Prior Study Comparison: 10/16/2017 Bilateral Diagnostic Mammogram, [facility]. 10/16/2017 Bilateral Diagnostic Ultrasound, [facility]. 10/22/2017 Bilateral Diagnostic Mammogram, [facility]. 11/28/2023 Bilateral MG 3D screening mammo w/cad, [facility]. Findings: The area of palpable concern of the right breast, the axilla of the right breast and the retroareolar of the right breast were scanned. Dense breast tissue noted at the site of clinical concern without evidence for mass. Normal-appearing lymph node with fatty hilum measures 1.8 x 0.4 x 0.1 cm. Managed clinically. Overall Assessment: Benign, BI-RAD 2 Management: Screening Mammogram of both breasts in 1 year. A clinical breast exam by your physician is recommended on an annual basis and results should be correlated with mammographic findings. This exam should not preclude additional follow-up of suspicious palpable abnormalities. Results were given to the patient verbally at the time of exam. Electronically signed and approved by: Juan J Nguyen M.D. Radiologis
== END | disposition home or self-care (01) ==
LOC: RADUSWWP 10:44
PROVIDERS: ATTEND Family Medicine
DX: R92.8 Other abnormal and inconclusive findings on diagnostic imaging of breast (principal)

== ENCOUNTER → 2023-12-17 | Outpatient (CLI) | payer BC ==
--- NOTE | 2023-12-17 08:52 | US ---
EXAMINATION TYPE: US liver DATE OF EXAM: 12/17/2023 COMPARISON: 10/27/2019 CLINICAL INDICATION: Female, 48 years old with history of R16.0 HEPATOMEGALY, NOT ELSEWHERE CLASSIFIE D; patient states that she has RUQ pain and elevated liver enzymes. No other symptoms. Patient has hx of cholecystectomy 3 years ago. TECHNIQUE: Multiple sonographic images of the right upper quadrant are obtained. FINDINGS: EXAM MEASUREMENTS: Liver Length: 17.6 cm Gallbladder Wall: Surgically absent cm CBD: 1.2 cm Right Kidney: 9.9 x 4.0 x 4.2 cm BIOMEDICAL SERVICE ENGINEER NOTES:Slightly limited due to bowel gas. Pancreas: wnl as best visualized Liver: upper limits of normal Gallbladder: Surgically absent Evidence for sonographic Johnson's sign: No CBD: enlarged for post cholecystectomy Right Kidney: No hydronephrosis or masses seen. IMPRESSION: No evidence for acute process.
== END | disposition home or self-care (01) ==
LOC: RADUSWWP 07:32
PROVIDERS: ATTEND Family Medicine
DX: R16.0 Hepatomegaly, not elsewhere classified (principal); R74.8 Abnormal levels of other serum enzymes
CPT/HCPCS: 76705

== ENCOUNTER → 2024-12-02 | Outpatient (CLI) | payer BC ==
--- NOTE | 2024-12-02 15:47 | MM ---
Reason for Exam: Screening (asymptomatic). Last screening mammogram was performed 12 month(s) ago. Patient History: Menarche at age 11. First Full-Term at age 20. Left ovary removed at age 37. Hysterectomy at age 37. Hormonal Contraceptives, starting at age 18 for 5 years. 10/22/2017, Benign Core Biopsy on the left side. 10/22/2017, Benign Core Biopsy on the right side. Mother had breast cancer, age 67. Risk Values: Esperanza 5 year model risk: 3.6%. NCI Lifetime model risk: 26.2%. Prior Study Comparison: 10/16/2017 Bilateral Diagnostic Mammogram, [facility]. 10/22/2017 Bilateral Diagnostic Mammogram, [facility]. 11/28/2023 Bilateral MG 3D screening mammo w/cad, [facility]. Tissue Density: The breasts are heterogeneously dense, which may obscure small masses. Findings: Analyzed By CAD. Microclip left breast from prior biopsy. A small area of subtle calcifications upper inner quadrant central left breast not well seen previously. Further evaluation with magnification views are recommended. Microclip right breast from prior biopsy. Focal dense tissue superior right MLO view remains unchanged. Overall Assessment: Incomplete: need additional imaging evaluation, BI-RAD 0 Management: Special View Mammogram of the left breast. Magnification views for calcifications. [facility] will attempt to contact patient to return for supplemental views. See note below in regards to patient's increased 5 year Esperanza score and increased lifetime risk score. Patient should continue monthly self-breast exams. A clinical breast exam by your physician is recommended on an annual basis. This exam should not preclude additional follow-up of suspicious palpable abnormalities. Note on Esperanza scores and lifetime risk: 1. A Esperanza score greater than 3% is considered moderate risk. If this is the case, consider specialist referral to assess eligibility for a risk reducing agent. 2. If overall lifetime risk for the development of breast cancer is 20% or higher, the patient may qualify for future screening with alternating mammogram and breast MRI. [facility], , 12/02/2024 3:44 PM. Electronically signed and approved by: Cecelia Nelson M.D. Radiologist
== END | disposition home or self-care (01) ==
LOC: RADMAMWWP 15:20
PROVIDERS: ATTEND Family Medicine
DX: Z12.31 Encounter for screening mammogram for malignant neoplasm of breast (principal); R92.333 Mammographic heterogeneous density, bilateral breasts; Z80.3 Family history of malignant neoplasm of breast; Z90.721 Acquired absence of ovaries, unilateral
CPT/HCPCS: 77063; 77067

== ENCOUNTER → 2024-12-14 | Outpatient (CLI) | payer BC ==
--- NOTE | 2024-12-14 13:46 | MM ---
Reason for Exam: Additional evaluation requested from abnormal screening. Last screening mammogram was performed less than 1 month ago. Patient History: Menarche at age 11. First Full-Term at age 20. Left ovary removed at age 37. Hysterectomy at age 37. Hormonal Contraceptives, starting at age 18 for 5 years. 10/22/2017, Benign Core Biopsy on the left side. 10/22/2017, Benign Core Biopsy on the right side. Mother had breast cancer, age 67. Risk Values: Esperanza 5 year model risk: 3.6%. NCI Lifetime model risk: 26.2%. Prior Study Comparison: 10/22/2017 Bilateral Diagnostic Mammogram, [facility]. 11/28/2023 Bilateral MG 3D screening mammo w/cad, [facility]. 12/02/2024 Bilateral MG 3D screening mammo w/cad, [facility]. Tissue Density: Left: The breasts are heterogeneously dense, which may obscure small masses. Findings: Analyzed By CAD. A few tiny groups of benign-appearing round calcifications in left breast are identified. A few calcifications thought to layer at area of concern. No persistent suspicious group of microcalcifications. Overall Assessment: Benign, BI-RAD 2 Management: Screening Mammogram of both breasts in 1 year. Return to routine follow-up. Results were given to the patient verbally at the time of exam. Patient should continue monthly self-breast exams. A clinical breast exam by your physician is recommended on an annual basis. This exam should not preclude additional follow-up of suspicious palpable abnormalities. Note on Esperanza scores and lifetime risk: 1. A Esperanza score greater than 3% is considered moderate risk. If this is the case, consider specialist referral to assess eligibility for a risk reducing agent. 2. If overall lifetime risk for the development of breast cancer is 20% or higher, the patient may qualify for future screening with alternating mammogram and breast MRI. [facility], , 12/14/2024 1:43 PM. Electronically signed and approved by: Sudhir Moya M.D.
== END | disposition home or self-care (01) ==
LOC: RADMAMWWP 13:16
PROVIDERS: ATTEND Family Medicine
DX: R92.8 Other abnormal and inconclusive findings on diagnostic imaging of breast (principal); R92.333 Mammographic heterogeneous density, bilateral breasts; Z80.3 Family history of malignant neoplasm of breast; Z90.721 Acquired absence of ovaries, unilateral
CPT/HCPCS: 77061; 77065